=== PATIENT | male | born 1955 | race Caucasian/White ===

== ENCOUNTER 2023-12-12 13:00 | Outpatient (CLI) | payer MEDICARE, SELFPAY | END 2023-12-12 13:01 | disposition home or self-care (01) | PROVIDERS: PCP Family Medicine; Visit Provider Internal Medicine | DX: C61 Malignant neoplasm of prostate (principal) | CPT/HCPCS: 72195 ==

== ENCOUNTER 2025-08-09 01:51 | Outpatient (CLI) | payer MEDICARE, SELFPAY | END 2025-08-09 01:52 | disposition home or self-care (01) | LOC: AMB 08-11 02:51 | PROVIDERS: Visit Provider Family Medicine | DX: R07.89 Other chest pain (principal) | CPT/HCPCS: A0425; A0427 ==

== ENCOUNTER 2025-08-09 02:33 | Emergency (ER) | payer MEDICARE, SELFPAY ==
[2025-08-09 02:35] VITALS: BP 169/86; PULSE 99; RESP 16; TEMP 37.4; O2SAT 98; BMI 22.7
--- OUTSIDE RECORDS SUMMARY | 2025-08-09 02:35 | XMS_ITS | Data Portability ---
Author Organization [place] [facility] [place] [facility] Address [address] [place] [address] Care Team Providers Care Polisher Hand Name Role Phone JUAN VASQUEZ Primary Care Provider Assessment No assessment recorded. Plan of Treatment Reminders Order DateSubmit DateProviderLast Modified ByOrganization DetailsLast Modified TimeDetailsAppointmentsNone recorded.LabNone recorded.ReferralNone recorded. ProceduresNone recorded.SurgeriesNone recorded.ImagingPET-CT, skull base to mid- thigh scan - PSMA scan; Eyes to [id number] Radiology [address], [address], 07/19/2023 09:47:11Medication OrdersNone recorded. Patient TargetsNo targets recorded. Patient Instructions Encounter Date Encounter Id Patient Instructions Last Modified By Organization Details Last Modified Time 07/16/2023 [id number] The patient and I talked at length about treatment options for prostate cancer. Etiologies of prostate cancer were discussed with the patient. Treatment options including radical retropubic prostatectomy, robotic assisted laparoscopic prostatectomy, cryosurgery, external beam radiation therapy, brachytherapy radiation therapy, HIFU, hormonal therapy, chemotherapy, medical therapy, active surveillance and watchful waiting were discussed atlength with the patient. The Sofía score and amount of cancer present on the patient??s prostate biopsy pathology report was reviewed at length and in detail. Pathological grades of prostate cancer, stages of prostate cancer including organ confined, capsular invasion, locally invasive, local joann spread, and distant metastatic spread, bony metastatic disease, and others were discussed at length. We discussed the recurrence rate of prostate cancer. Alternative treatment options were discussed with the patient in detail. All questions were answered. apolcariNot /21/2023 18:24:52 Reason for Referral None Reported. Results Created Date Observation Date Name Description Value Unit Range Abnormal Flag Note LastModifiedBy Organization Detail LastModifiedTime 06/19/2023 06/19/2023 PSA, total, serum or plasma PSA 8.38 highNot AvailableNot Pnuglfxcw84/15/2023 11:45:411ET-CT, skull base to mid-thigh scanNo observation recorded.[facility] [address], [place], [address], Ph [phone] 11:56:17 Result Notes None recorded. Problems Name Problem SNOMED Code Status Onset Date Resolution Date Notes Provider Name and Address Organization Details Recorded Time Type 2 diabetes mellitus 89450793 Active Tabitha catalan [facility] Qkbrwnn31/21/2023 13:24:33Complication of urinary catheter [id number]/02/2025JAMISON BOWMAN MD [address] [place] [address],[address], [address] [place] [address], [facility] Zwclfbw9902/24/2025 16:29:42Radiation [id number] 03/01/2025MCLAREN OAKLANDYoung BOWMAN MD [address] [place] [address],[address], [address] [place] [address], [facility] Vmjbkgr0803/01/2025 16:55:48 Problem Notes None recorded. Procedures Surgical History Date Name Laterality Status Provider Name and Address Organization Details Recorded Time 07/16/2023 Past Data Reviewed Ashish Trinh MD [address] [place] [address],[address], [address] [place] [address], [facility] Xejhxtm94/21/2023 07:25:231iagnostic colonoscopy completedNot AvailableHealth Note07/13/2023 09:27:06 Imaging Results None recorded. Procedure Notes None recorded. Medical Equipment None Reported. Medications Name Sig Start Date Stop Date Status Note LastModified by Organization Details LastModified Time atorvastatin 40 mg tablet TAKE ONE TABLET BY KELVIN TH EVERY DAY activeNot AvailableNot AvailableNot Availableazithromycin 250 mg tabletTAKE TWO TABLETS BY MOUTH ONE DOSE ON THE FIRST DAY, THEN TAKE ONE DAILY THEREAFTER. activeNot AvailableNot AvailableNot Availableclopidogrel 75 mg tabletTAKE ONE TABLET BY MOUTH EVERY MORNINGactiveNot AvailableNot AvailableNot Available sulfamethoxazole 800 mg-trimethoprim 160 mg tabletTAKE ONE TABLET BY MOUTH TWICE A DAY FOR 7 DAYSactiveNot AvailableNot AvailableNot Availablesildenafil 100 mg tabletTAKE ONE TABLET BY MOUTH EVERY DAY 30MIN TO 4HRS PRIOR TO SEXUAL ACTIVITY NEEDED FOR ERECTILE DYSFUNCTIONactiveNot AvailableNot AvailableNot Available famotidine 20 mg tabletTAKE ONE TABLET BY MOUTH TWICE A DAYactiveNot Available Not AvailableNot Availabletamsulosin 0.4 mg capsuleTAKE ONE CAPSULE BY MOUTH EVERY DAYactiveNot AvailableNot AvailableNot Availablecephalexin 500 mg capsule TAKE ONE CAPSULE BY MOUTH THREE TIMES A DAY FOR 7 DAYSactiveNot AvailableNot AvailableNot Availablepantoprazole 40 mg tablet,delayed releaseTAKE ONE TABLET BY MOUTH EVERY DAYactiveNot AvailableNot AvailableNot Availablelevofloxacin 500 mg tabletTAKE ONE TABLET BY MOUTH EVERY DAY FOR ONE DAY3completedNot AvailableNot AvailableNot Availableamoxicillin 875 mg-potassium clavulanate 125 mg tabletTAKE ONE TABLET BY MOUTH TWICE A DAY WITH MEALS FOR 7 DAYSactiveNot AvailableNot AvailableNot AvailableNovolog FlexPen U-100 Insulin aspart 100 unit/mL (3 mL) subcutaneousINJECT 1 UNIT UNDER THE SKIN PER 15G OF CARBOHYDRATE PLUS CORRECTION DOSE MAX 30 UNITS PER DAYactiveNot AvailableNot AvailableNot Availablechlorhexidine gluconate 0.12 % mouthwashGENTLY SWISH 15ML BY MOUTH TWO TIMES A DAY FOR 1-2 WEEKSactiveNot AvailableNot AvailableNot AvailableBD Ultra- Fine Short Pen Needle 31 gauge x 5/16USE TO ADMINISTER INSULIN AT HOME ONCE DAILYactiveNot AvailableNot AvailableNot AvailableLantus Solostar U-100 Insulin 100 unit/mL (3 mL) subcutaneous penINJECT 20-22 UNITS SUBCUTANEOUS BEFORE BEDTIMEactiveNot AvailableNot AvailableNot Availablelidocaine 2 % mucosal jelly in applicatorTake 10 mL 3 times a day by mucous route as needed, for urethral pain from dumont catheter.5activeNot AvailableNot AvailableNot Available GaviLyte-G 236 gram-22.74 gram-6.74 gram-5.86 gram oral solutionTAKE 4000ML BY MOUTH ONE TIME FOR ONE DOSEactiveNot AvailableNot AvailableNot Available FreeStyle Jerry 14 Day Sensor kitREPLACE SENSOR EVERY 14 DAYS DIRECTEDactive Not AvailableNot AvailableNot AvailableFreeStyle Jerry 3 Plus Sensor device CHANGE SENSORS EVERY 15 DAYS.activeNot AvailableNot AvailableNot Available Vitals Date Recorded Body mass index (BMI) Body height Body weight Provider Name and Address Organization Details Last Updated DateTime 07/16/2023 23.5 kg/m2 170.18 cm 68932.9364 79221 g Not Available Health Note 07/16/2023 13:22:01 Social History Question Answer Notes LastModified by Organization D etails LastModified Time Tobacco Smoking Status Never Smoker Not AvailableHealth Note07/13/2023 09:27:07Do You Have An Advance Directive?No voqsgrt7Jipwxpftqud not liuchaatx40/13/2025What Is Your Level Of Caffeine Consumption?[email or web address] not attoywfqm68/18/2023How Much Tobacco Do You Chew?[email or web address] not izuxkogfl83/18/2023o You Have A Medical Power Of Junior Project Manager?Srpmvokro1Gfaeyeqjfzz not btvopkram32/13/2025What Was The Date Of Your Most Recent Tobacco Screening?07/16/2023PI-685Information not available 07/13/2023Have You Ever Been Counseled For Unhealthy Alcohol Use?Yesagranero Information not idobcbjtv83/21/2023What Is Your Relationship Status? [email or web address] not niqzmkomh88/18/2023re You Sexually Active?NoAPI-685 Information not cpflhoeis84/18/2023Has Tobacco Cessation Counseling Been Provided?YesagraneroInformation not yvgmtosgd93/21/2023On What Date Was Tobacco Cessation Counseling Provided?07/16/2023graneroInformation not available 07/16/2023How Many Days In The Past Year Have You Consumed 5 Or More Drinks?2 [email or web address] not stugjxysq10/18/2023 Sex: Unknown Functional Status Question Answer Note LastModified by Organization D etails LastModified Time Do you use any illicit or recreational drugs? No [email or web address] not baururnxs18/18/2023o you or have you ever used any other forms of tobacco or nicotine?NoagraneroInformation not lgdcuhtam97/21/2023What is your level of alcohol consumption?[email or web address] not available 07/13/2023o you or have you ever used smokeless tobacco?Never used smokeless tobaccoAPI-[email or web address] not mmoykrswy93/18/2023o you or have you ever used e- cigarettes or vape?Never used electronic [email or web address] not wdorltqdt76/18/2023 Mental Status None recorded. Family History Relationship Description Onset Age of this Age Resolved Age Notes LastModified by Organization Details LastModified Time Unspecified Relation Family history of diabetes mellitus [email or web address] wzypwtitb10/18/2023 09:27:05 Medical History Condition Response High Blood Pressure N Kidney Stones N Lung Disease N Depression N GERD/Acid Reflux N Sexually Transmitted Infection N Diabetes Y Bleeding Disorder N Cancer N High Cholesterol N Heart Disease N Immunizations Vaccine Type Date Status Note Provider Nam e and Address Organization Details Recorded Time SARS-COV-2 (COVID-19) vaccine, UNSPECIFIED 05/10/2023 completed Not AvailableHealth Note07/13/2023 09:27:11pneumococcal, unspecified formulation 2completedNot AvailableHealth Note07/13/2023 09:27:11influenza, unspecified njxhwdnoict04/15/2023completedNot AvailableHealth Note07/13/2023 09:27:11zoster live1completedNot AvailableHealth Note07/13/2023 09:27:11 Past Encounters Encounter ID Performer Location Encounter Start Date Encounter Closed Date Diagnosis/Indication Diagnosis SNOMED-CT Code Diagnosis ICD10 Code Diagnosis IMO Codes Diagnosis Note [id number] Adan Trinh MD [address] [address] 07/16/2023 13:18:33 07/16/2023 20:34:03 Malignant neoplasm of prostate 312698407 C61 67 y/o male with cT1c, Sofía grade group 3 adenocarcinoma of the prostate, iPSA 8.38 We reviewed the treatment options in detail with a focus on RT and surgery. He would be a reasonable candidate for either option He would be a reasonable candidate for either option pending results of a PSMA PET/CT He has plan for be in [place], [place] for the months of Aug/Sep/October. If he opts for RT, would have him start ADT and place a rectal spacer prior to his departure He will consider the options and let me know how he would like to proceed Health Concerns Section Related Observation LastModified by Organization Velasquez ls LastModified Time None Recorded Concern Status LastModified by Organization Details LastModified Time None Recorded Advance Directives Directive N: Payers Insurance Date Sequence Insurance Name Policy Number Policy Zarate Covered Member ID Zarate Member ID Guarantor Name 03/23/2025 1 [employer] - DOS ON O R AFTER 19 (MEDICARE REPLACEMENT/ADVANTAGE - HMO) [id number] Wellington Kaur [id number] [employer] KaurUCARE - DOS PRIOR TO 2023 - DUAL ELIGIBLE (MEDICARE REPLACEMENT/ADVANTAGE - HMO)[id number] Sondra [id number] Speck Notes Date Note Type Note Provider Name and Address Orga nization Details Recorded Time 07/16/2023 text/html 67 year old male here for discussion re: options for newly diagnosed CAP No issues with UGO. FOS is not strong.No issues with ED, but No longer sexually active PSHx: nonePMHx: Type 1/2 x 25 years (Glucose control is 8) FamHx : none PSA10/ - 8.389/07/18 - 8.124/ - 4.864/ - 3.935/ - 2.01 Prostate Biopsy 07/04/23Final DiagnosisA) PROSTATE, RIGHT LATERAL BASE, NEEDLE BIOPSY:1. Prostatic tissue without evidence of neoplasm2. No atypical foci, high grade prostatic intraepithelial neoplasia, or malignancyB) PROSTATE, RIGHT, NEEDLE BIOPSY:1. Prostatic adenocarcinoma, Britt score 3 + 4 = 7 (ISUP Grade Group 2), with Britt pattern 4 representingapproximately 10% of tumor2. Total surface area involved: <5%3. Number of needle biopsy cores involved: 1 of 34. Perineural invasion: PresentC) PROSTATE, LEFT LATERAL BASE, NEEDLE BIOPSY:1. Prostatic adenocarcinoma, Sofía score 3 + 4 = 7 (ISUP Grade Group 2), with Britt pattern 4 representingapproximately 20% of tumor2. Total surface area involved: 40%3. Number of needle biopsy cores involved: 3 of 34. Perineural invasion: PresentD) PROSTATE, LEFT, NEEDLE BIOPSY:1. Prostatic adenocarcinoma, Sofía score 4 + 3 = 7 (ISUP Grade Group 3), with Britt pattern 4 re presentingapproximately 60% of tumor2. Total surface area involved: 20%3. Number of needle biopsy cores involved: 3 of 34. Perineural invasion: Present The documentation for this visit was created with the assistance of Zari Joiner, medical scribeChief complaint:reason listed below Other Urological Concern:Other Urological Concern:Prostate cancerBegan:2 Months agoFrequency:DailySeverity:mild Progression: about the same overall Adan Trinh MD [address], [place], [address], [facility] Rhgjqbs63/21/2023 18:25:32
--- OUTSIDE RECORDS SUMMARY | 2025-08-09 02:35 | XMS_ITS | Clinical Summary ---
Author Organization [facility] Address [address] [place] [address] Care Team Providers Care Garment Examiner Name Role Phone Elsewhere, Pcp Primary Care Provider Unavailabl e Source Comments Patient records contain information from all sites at [facility]. For routine questions regarding patient records, call [phone] during business hours, M-F 8:00 AM - 5:00 PM Central Time. Record requests for emergency care only can be directed to [phone] at any time.[facility] Allergies Active AllergyReactionsCriticalityNoted DateCommentsAmoxicillinDiarrhea,GI uyqhuphofdv81/02/2010 Medications MedicationSigDispense QuantityRefillsLast FilledStart DateEnd DateStatus glimepiride (AMARYL) 4 mg tablet Take 1.5 tablets (6 mg total) by mouth daily. 135 tablet Active atorvastatin (LIPITOR) 40 mg tablet Take 1 tablet (40 mg total) by mouth at bedtime. 90 tablet Active blood-glucose meter misc E11.9 NIDDM type II - Test 2 times/day. Reason: High A1C05/04/2019Active FreeStyle Jerry 3 Sensor device CHANGE EACH SENSOR EVERY 14 DAYS06/20/2023ctive clopidogreL (PLAVIX) 75 mg tablet Take 75 mg by mouth every morning.Active dextrose 40 % (GLUTOSE) 40 % gel Take 15 g by mouth every 2 (two) hours as needed.05/08/2019Active famotidine (PEPCID) 20 mg tablet Take 20 mg by mouth.08/14/2022ctive insulin aspart U-100 (NovoLOG FlexPen) 100 unit/mL (3 mL) injection INJECT 1 units per 15 grams of carbohydrate plus correction dose. Up to 30 units daily08/26/2009ctive insulin glargine (Lantus Solostar U-100 Insulin) 100 unit/mL (3 mL) injection Inject 17 Units under the skin.09/27/2022ctive ketoconazole (NIZORAL) 2 % shampoo WASH AFFECTED AREAS ON FACE 2-3X WEEKLY. LATHER AND LET SIT FOR SEVERAL MINUTES BEFORE RINSING.08/05/2023ctive levoFLOXacin (LEVAQUIN) 500 mg tablet TAKE ONE TABLET BY MOUTH EVERY DAY FOR ONE DAY05/09/2023ctive BD Ultra-Fine Short Pen Needle 31 gauge x 5/16 needle 06/01/2023ctive triamcinolone (KENALOG) 0.1 % cream APPLY A THIN LAYER TO AFFECTED AREA ON SCALP TWICE DAILY FOR UP TO 2 WEEKS AT A TIME, THEN TAKE A 2WEEK BREAK. RESUME NEEDED FOR FLARES.08/05/2023ctive pantoprazole (PROTONIX) 40 mg EC tablet Take 1 tablet by mouth daily.11/11/2023ctive insulin glargine (Lantus Solostar U-100 Insulin) 100 unit/mL (3 mL) injection Inject 20-22 Units under the skin.10/24/2023ctive calcium carbonate-vitamin D3 500 mg-3.125 mcg (125 unit) per tablet Take by mouth 2 (two) times a day.Active tamsulosin (Flomax) 0.4 mg 24 hr capsule Take 1 capsule (0.4 mg total) by mouth daily. 30 capsule 5Active Active Problems ProblemNoted DateDiagnosed DateRadiation Therapy Cystitis With Hematuria 03/08/2025Stroke Cerebrovascular Accident Personal Mxbpnlh7712/12/2016 Overview (01/15/2017): Stroke (CVA) Pers Hx Diabetes Mellitus Type 2 Wfkqpmikprlh62/22/2013 Overview (01/15/2017): Diabetes mellitus II, uncontrolled (also use V58.67 if pt has filler leaf cutter long (current insulin use) Diabetes Mellitus Type Overview (01/15/2017): Diabetes mellitus type II Resolved Problems ProblemNoted DateDiagnosed DateResolved DatePrimary Malignant Neoplasm Of [place]15/12/2024 Cancer Staging: Clinical stage from 07/04/2023:Stage IIC(cT1c, cN0, cM0, PSA: 8.4, Grade Group: 3) - Unsigned Encounters DateTypeDepartmentCare AlxjWpvytflhied22/16/2025 8:33 AM CDT - 06/10/2025 12:00 PM CDTHospital Encounter Department of Radiation Oncology in [place], [place] [address] [place] [address] Lico Yu M.D. Rhodes, Lori L Primary Malignant Neoplasm Of Prostate (HCC) (Primary Dx); Radiation Therapy Cystitis With Cyboapkvw69/14/2025 7:42 AM CDT - 06/08/2025 11:59 PM CDTHospital Encounter Department of Laboratory Medicine in [place], [place] [address] [place] [address] Lico Yu M.D. Primary Malignant Neoplasm Of Prostate (HCC) Discharge Disposition: Home or Self Carefrom Last 3 Months Immunizations ImmunizationAdministration DatesNext DueDT, Fencdvoke05/18/2003Influenza, Ujfcvsjspis39/11/2013,07/09/2012,05/24/2011,08/21/20109022YMB19580505VLEE84 12/08/2007Tdap1 Family History Medical HistoryRelationNameCommentsDiabetesBrother 1TomOn-set adultDiabetes Brother 2JohnOn-set adultDiabetesBrother 3DiabetesBrother 4Heart attackFather 1 Heart attackFather 2RelationNameStatusCommentsBrother 1TomAliveBrother 2John AliveBrother 3AliveBrother 4Father 1AliveFather 2 Social History Tobacco UseTypesPacks/DayYears UsedDateSmoking Tobacco: NeverSmokeless Tobacco: Never Tobacco Cessation:Counseling Given: Not Answered Alcohol UseStandard Drinks/WeekCommentsYes4 (1 standard drink = 0.6 oz pure alcohol)[facility] UtilitiesAnswerDate RecordedIn the past 12 months has the Followap, gas, oil, or water [employer] threatened to shut off services in your home?No 12/24/2024Hunger Vital SignAnswerDate RecordedWithin the past 12 months, you worried that your food would run out before you got the money to buymore.Never true12/24/2024Within the past 12 months, the food you bought just didn't last and you didn't have money to get more.Never true12/24/2024PRAPARE - TransportationAnswerDate RecordedIn the past 12 months, has lack of transportation kept you from medical appointments or from getting medications?No 12/24/2024In the past 12 months, has lack of transportation kept you from meetings, work, or from getting things needed for daily living?No12/24/2024 Housing StabilityAnswerDate RecordedWhat is your living situation today?I have a steady place to live12/24/2024Sex and Gender InformationValueDate RecordedSex Assigned at TngpdBnsd00/12/2023 10:48 AM CSTLegal GqjOugz7509/28/2016 9:22 AM SOCIAL MEDIA SPECIALIST Gender FosxvboiFqjc79/12/2023 10:48 AM CSTSexual BdxajgwbsosMkpcgboj95/12/2023 10:48 AM SOCIAL MEDIA SPECIALIST Last Filed Vital Signs Vital SignReadingTime TakenCommentsBlood Jeanculf570/6906/10/2025 8:48 AM CDT Lqhbs884706/10/2025 8:48 AM PZDUleuhqrppug30.3 ??C (97.4 ??F)06/10/2025 8:48 AM CDTRespiratory Paki509212/11/2023 11:50 AM CDTOxygen Pfxixpmtyt086%12/11/2023 11:50 AM CDTInhaled Oxygen Concentration--Wyjjzv22.6 kg (162 lb 4.1 oz) 06/10/2025 8:48 AM GGCXffqrc094 cm (5' 7.72)03/26/2017 9:20 AM CDTBody Mass Index24.8803/26/2017 9:20 AM CDT Plan of Treatment Health MaintenanceDue DateLast DoneCommentsCT Powpciwlorhg1953ologuard 1953iabetic Eye Exam1953iabetic Office Visit with Foot Exam 1953Hepatitis C Oraybfgvg1953Office Visit for Blood Pressure Check / Re-check1953Hepatitis B Vaccines (1 of 3 - Risk 3-dose series)2013 Urine Bfdsrsl15, 12/31/2013, 04/30/2013, Additional history existsDepression Screening (Annual PHQ-2)08/26/2024Fall Risk Screen (Annual) 08/26/20246184Bmfkqlvtjxa35, 11/02/2014Colorectal Cancer Erzkyzwztluw69/28/2025Hemoglobin A1C/12/2024, 11/30/2024, 05/07/2024, Additional history existsCOVID-19 Vaccine (9 - Moderna risk 2024- season)/, 05/08/2024, 06/18/2023, Additional history exists Creatinine Level (Kidney Function Test)/05/2025, 06/03/2025, 04/30/2025, Additional history existsLipid (Cholesterol) Idyovquii59/24/2029 01/17/2024, 12/31/2022, 12/15/2021, Additional history existsDTaP,Tdap,and Td Vaccines (4 - Td or Tdap), 06/21/2014, 07/13/2003, Additional history existsAbdominal Aortic Aneurysm (AAA) ScreenDiscontinued 01/08/2014, 01/03/2011Zoster SuzauqgaIunpaniww61/15/2021, 08/01/2020, 06/01/2020 Pneumococcal vaccine (50+ years)Ulruivksu07/07/2023, 05/10/2022, 03/30/2021, Additional history existsRSV vaccine - (32-36 weeks) or 50+ years Iizfzeohl42/23/2024Influenza NcepvghSlaftbqlz60/15/2025, 04/24/2024, 06/18/2023, Additional history existsHPV VaccinesAged OutNo longer eligible based on patient's age to complete this topicIPV VaccinesAged OutNo longer eligible based on patient's age to complete this topic Medical Devices ImplantedTypeAreaManufacturerDevice IdentifierShelf Expiration DateModel / Serial / LotCont Glucose Monitoring (Cgm)Cont Glucose Monitoring (CGM)Left: Arm Marker Tissue [employer] Kv 1x5 - [id number] Implanted:Qty: 4 on 12/11/2023 by Mitch Rojo M.D. at [facility] [[email or web address]] [facility] MarkerProBanner [facility] Medical Vjtktsyhzp5527250245053694/14/2028 [id number] / / [id number] Procedures Procedure NamePriorityDate/TimeAssociated DiagnosisCommentsPROSTATE-SPECIFIC AG (PSA) DIAGNOSTIC, EZohygqt87/14/2025 7:54 AM CDT Primary Malignant Neoplasm Of Prostate (HCC) HEMOGLOBIN A1C, NWsjjapn56/01/2017 9:25 AM CDT ALBUMIN, RANDOM, MVmhapio78/19/2017 9:51 AM CDT LIPID PANEL, OUwxecbq06/19/2017 9:21 AM CDT BASIC METABOLIC PANEL, S/ISpqljrt44/19/2017 9:21 AM CDT US ABDOMEN FHOEIFXXBkdamwi99/16/2014 8:27 AM CDT from Last 3 Months or Most Recently Relevant to Health Maintenance Results * PSA (Prostate-Specific Antigen), Diagnostic (06/08/2025 7:54 AM CDT)Component ValueRef RangeTest MethodAnalysis TimePerformed AtPathologist Signature Prostate-Specific Ag0.13<=6.5 ng/mL06/08/2025 11:20 AM CDTOWATComment: ----ADDITIONAL INFORMATION---- The testing method is an electrochemiluminescence assay manufactured by [employer] and performed on the Modular or Momo system. Values obtained with different assay methods or kits may be different and cannot be used interchangeably. Test results cannot be interpreted as absolute evidence for the presence or absence of malignant disease. Specimen (Source)Anatomical Location / LateralityCollection Method / Volume Collection TimeReceived TimeBlood (Blood, Venous)06/08/2025 7:54 AM CDT 06/08/2025 10:36 AM CDT Narrative Authorizing ProviderResult TypeResult StatusLico Yu M.D.LAB BLOOD ADD-ONFinal ResultPerforming OrganizationAddressCity/State/ZIP CodePhone Number [facility] [address] [place] [address], [place] OWAT [facility] [place] [address] [place] [address] * (ABNORMAL) Hemoglobin A1c (03/26/2017 9:25 AM CDT)ComponentValueRef RangeTest MethodAnalysis TimePerformed AtPathologist SignatureHemoglobin A1c, B7.3(H) <=5.6 R3YFQNEMIKQAMWyyclpmq (Source)Anatomical Location / LateralityCollection Method / VolumeCollection TimeReceived OfesPxlom17/01/2017 9:25 AM CDT Narrative Authorizing ProviderResult TypeResult StatusBaltazar Barrera M.D.LAB BLOOD ADD-ONEdited Result - FinalPerforming OrganizationAddressCity/State/ZIP Code Phone Number POWERCHART NA * Microalbumin, Random, Urine (12/12/2016 9:51 AM CDT)ComponentValueRef Range Test MethodAnalysis TimePerformed AtPathologist SignatureCreatinine, Random, U 7340 - 278 MGDLPOWERCHARTHXU Albumin %<7.0MGLPOWERCHARTAlbumin/Creatinine Ratiosee comment0 - 17 MGGPOWERCHARTComment:Result is below the linear limit of test method. calculation not performed 12/12/2016 12:03:17 CDT ksSpecimen (Source)Anatomical Location / LateralityCollection Method / VolumeCollection TimeReceived EbcbQmznw71/19/2017 9:51 AM CDT Narrative Authorizing ProviderResult TypeResult StatusBaltazar Barrera M.D.LAB URINE ORDERABLESFinal ResultPerforming OrganizationAddressCity/State/ZIP CodePhone Number POWERCHART * Lipid Panel (12/12/2016 9:21 AM CDT)ComponentValueRef RangeTest MethodAnalysis TimePerformed AtPathologist SignatureCholesterol, Zzher344<=199 MGDLPOWERCHART Comment: 2014 National Lipid Association recommendations for Total Cholesterol in adults ages 18 and up: Desirable <200 mg/dL Borderline high 200-239 mg/dL High 240 mg/dL 2014 National Lipid Association recommendations for Total Cholesterol in children ages 2 to 17. Acceptable <170 mg/dL Borderline High 170-199 mg/dL High 200 mg/dL HX HDL59>=40 MGDLPOWERCHARTComment: 2014 National Lipid Association recommendations for HDL-C in adults ages 18 and up: Low <40 mg/dL (Men) Low <50 mg/dL (Women) 2014 National Lipid Association recommendations for HDL-C in children ages 2 to 17. Low <40 mg/dL Borderline Low 40-45 mg/dL Acceptable >45 mg/dL Slnvcehglpynt806<=149 MGDLPOWERCHARTComment: 2014 National Lipid Association recommendations for Triglycerides in adults ages 18 and up: Normal <150 mg/dL Borderline High 150-199 mg/dL High 200-499 mg/dL Very High 500 mg/dL 2014 National Lipid Association recommendations for Triglycerides in children ages 2 to 9. Acceptable <75 mg/dL Borderline High 75-99 mg/dL High 100 mg/dL 2014 National Lipid Association recommendations for Triglycerides in children ages 10 to 17. Acceptable <90 mg/dL Borderline High 90-129 mg/dL High 130 mg/dL Trigs >400mg/dL: Triglycerides >400 mg/dL. Calculated LDL cholesterol is not valid. Non-HDL cholesterol may be used for risk assessment when triglycerides are >400mg/dL. Calculated LDL68<=129 MGDLPOWERCHARTComment: 2014 National Lipid Association recommendations for LDL-C in adults ages 18 and up: Desirable <100 mg/dL Above desirable 100-129 mg/dL Borderline high 130-159 mg/dL High 160-189 mg/dL Very High 190 mg/dL 2014 National Lipid Association recommendations for LDL-C in children ages 2 to 17. Acceptable <110 mg/dL Borderline High 110-129mg/dL High 130 mg/dL LDL-C >190mg/dL: The markedly elevated LDL level is suggestive of a genetic condition such as familial hypercholesterolemia(FH) or familial defective apolipoprotein B-100 (FDB). Molecular genetic testing for FH and FDB is available through [facility]: FH/ADH Genetic Reflex Panel (test ADHP). Acquired (non-genetic) causes of markedly increased LDL cholesterol include cholestatic liver disease due to the presence of LpX. If a genetic form of hypercholesterolemia is suspected, family studies including biochemical testing for lipids (total cholesterol,triglycerides, LDL cholesterol and HDL cholesterol) are recommended. ??Please contact the laboratory at or the on-line test catalog at [facility] for information about how to order these tests or to speak with a genetic counselor. Further interpretation would require clinical information. Total Cholesterol/HDL Ratio2.00POWERCHARTHXLDL/UPF7GGRUXRKHZEXlpejwbh (Source) Anatomical Location / LateralityCollection Method / VolumeCollection Time Received EtksTfdzx45/19/2017 9:21 AM CDT Narrative Authorizing ProviderResult TypeResult StatusDachris Barrera M.D.LAB BLOOD ADD-ONFinal ResultPerforming OrganizationAddressCity/State/ZIP CodePhone Number POWERCHART * US Abdomen Complete (01/08/2014 8:27 AM CDT)Anatomical RegionLaterality ModalityAbdomenN/AUltrasoundSpecimen (Source)Anatomical Location / Laterality Collection Method / VolumeCollection TimeReceived Time01/08/2014 8:27 AM CDT Addenda Addendum by Henry Mckenna M.D. on 01/08/2014 8:27 AM CDT RAD^^^OW US Abdomen Complete 01/08/2014 08:27:40 Addendum by Henry Mckenna M.D. on 01/08/2014 9:30 AM CDT RAD^^^OW US Abdomen Complete 01/08/2014 09:30:00 Addendum by Henry Mckenna M.D. on 01/08/2014 8:27 AM CDT RAD^^^MA US Abdomen Complete 01/08/2014 08:27:00 Addendum by Henry Mckenna M.D. on 01/08/2014 9:30 AM CDT RAD^^^MA US Abdomen Complete 01/08/2014 09:30:00 Narrative 01/08/2014 10:18 AM CDT Exam: ?? US Abdomen Complete Clinical history: Elevated bilirubin Comparison: 01/03/2011 Findings: The pancreas is not well seen due to bowel gas. The liver measures 13.7 cm in AP dimension and exhibits normal echogenicity and echotexture without focal mass. The common bile duct measures 3 mm in maximal diameter. The gallbladder wall measures 2 mm in diameter. There is no pericholecystic fluid or sonographic Cohen sign. There is no cholelithiasis or sludge. The right kidney measures 11.1 x 4.2 cm and exhibits no hydronephrosis, echogenic shadowing stones, or mass. The left kidney measures 11.3 x 4.7 cm and exhibits no hydronephrosis, echogenic shadowing stones, or mass. The spleen is 10.5 cm. The aorta, IVC, and portal vein are patent. Impression: No acute abdominal pathology identified. Procedure Note Sukumar Mast M.D. / Henry Mckenna M.D. - 01/04/2017 Exam: US Abdomen Complete Clinical history: Elevated bilirubin Comparison: 01/03/2011 Findings: The pancreas is not well seen due to bowel gas. The liver measures 13.7 cm in AP dimension and exhibits normal echogenicity and echotexture without focal mass. The common bile duct measures 3 mm in maximal diameter. The gallbladder wall measures 2 mm in diameter. There is no pericholecystic fluid or sonographic Cohen sign. There is no cholelithiasis or sludge. The right kidney measures 11.1 x 4.2 cm and exhibits no hydronephrosis, echogenic shadowing stones, or mass. The left kidney measures 11.3 x 4.7 cm and exhibits no hydronephrosis, echogenic shadowing stones, or mass. The spleen is 10.5 cm. The aorta, IVC, and portal vein are patent. Impression: No acute abdominal pathology identified. Authorizing ProviderResult TypeResult StatusCarlos Torres Jr., RJennaD.M.S.[facility] US PROCEDURESEdited Result - Final from Last 3 Months or Most Recently Relevant to Health Maintenance Insurance Care Teams Team MemberRelationshipSpecialtyStart DateEnd Date Elsewhere, Pcp [facility] Yivyhrqq85/8/18
--- OUTSIDE RECORDS SUMMARY | 2025-08-09 02:35 | XMS_ITS ---
Author Organization [facility] Address [address] [place] [address] Care Team Providers Care Biopharmaceutical Rep Name Role Phone Elsewhere, Pcp Primary Care Provider Unavailabl e Active Problems ProblemNoted DateDiagnosed DateRadiation Therapy Cystitis With Hematuria 03/08/2025Stroke Cerebrovascular Accident Personal Fgibvaj3312/12/2016 Overview (01/15/2017): Stroke (CVA) Pers Hx Diabetes Mellitus Type 2 Khuylhmxbarp33/22/2013 Overview (01/15/2017): Diabetes mellitus II, uncontrolled (also use V58.67 if pt has meterman (current insulin use) Diabetes Mellitus Type Overview (01/15/2017): Diabetes mellitus type II Current Treatment and Therapy Plans No current plan information found. Past Treatment and Therapy Plans No past plan information found. Past Radiation Episodes * SBRT: ProstateOverview* First Treatment DateLast Treatment DateTreatment Site TechniqueGoalEpisode Aldobcco52/01/2024* Prostate SBRTCurative * Linked Problems Primary Malignant Neoplasm O f Prostate Treatment Courses* Treatment PeriodFraction DoseFractionsTotal DosePlansPlanned L2Eozgykxs80/26/2024 - 4800 cGy5 / 54,000 cGyReference Points XcolffhljWCH7206r95/26/2024 - 12/30/2023?4,000 cGy Resolved Problems ProblemNoted DateDiagnosed DateResolved DatePrimary Malignant Neoplasm Of Gknwhvif68/12/2024 Cancer Staging: Clinical stage from 07/04/2023:Stage IIC(cT1c, cN0, cM0, PSA: 8.4, Grade Group: 3) - Unsigned
--- OUTSIDE RECORDS SUMMARY | 2025-08-09 02:36 | XMS_ITS | Clinical Summary ---
Author Organization [email or web address] [facility] [employer] Address [address] [place] [address] Care Team Providers Care Vp Clinical Research Name Role Phone Andre Ricci Primary Care Provid er David Barbosa MD Unavailable Allie Maier RN Unavailable [phone] Orlando Morris MD Unavailable [phone] Allergies Active AllergyReactionsCriticalityNoted DateCommentsAmoxicillinDiarrhea 01/15/2014 Patient reports this happened 40 years ago as of 02/17/25 Medications MedicationSigDispense QuantityRefillsLast FilledStart DateEnd DateStatus insulin syringe-needle u-100 0.3 mL 31 gauge x 5/16 Indications:Type 2 diabetes mellitus without complication, without long-term current use of insulin (HC)As directed. For administering insulin at home. 3 box 07/14/2020Active calcium carbonate-vitamin D3, 500 mg-400 units, (OSCAL 500 + D) tablet Take 1 Tablet by mouth two times daily before meals.01/17/2024ctive insulin aspart, U-100, (NovoLOG Flexpen U-100 Insulin) 100 unit/mL (3 mL) pen Indications:Type 2 diabetes mellitus without complication, with long-term current use of insulin (HC)INJECT 1 UNIT UNDER THE SKIN PER 15G OF CARBOHYDRATE PLUS CORRECTION DOSE MAX 30 UNITS PER DAY 60 mL 07/19/2024ctive Additional Information Patient taking differently: INJECT 1 UNIT UNDER THE SKIN PER 20G OF CARBOHYDRATE PLUS CORRECTION DOSE MAX 30 UNITS PER DAY, Informant: Other Medical Records, Reported on 07/28/2025 sildenafil citrate (Viagra) 100 mg tablet Indications:Erectile dysfunction, unspecified erectile dysfunction typeTake 1 Tablet (100 mg) by mouth once daily if needed for Erectile Dysfunction for up to 20 doses. Take 30min to 4 hours before sexual activity. Max 100mg/24hr. 30 Tablet 5Active FreeStyle Jerry 3 Plus Sensor for continuous blood glucose monitor (CGM) Indications:Type 2 diabetes mellitus without complication, with long-term current use of insulin (HC)To be used to read blood sugars, change sensor every 15 days. 6 Each 5Active atorvastatin (LIPITOR) 40 mg tablet Indications:Hyperlipidemia, unspecified hyperlipidemia typeTAKE ONE TABLET BY MOUTH EVERY DAY 90 Tablet 5Active fluorouracil (Efudex) 5 % cream Indications:Skin cancerApply to the skin twice daily for three weeks to the site on the top left scalp. 40 g 5Active glucagon (Glucagon Emergency Kit (human)) 1 mg/mL solution for injection kit Indications:Type 2 diabetes mellitus with hyperglycemia, with long-term current use of insulin (HC)Inject 1 mg intramuscular each time if needed for Severe Hypoglycemia. For severe hypoglycemia. Roll on side and call 911 after administration. May repeat in 15 minutes. 2 Each 5Active tamsulosin 0.4 mg capsule Take 0.4 mg by mouth one time if needed.Active warfarin (COUMADIN) 2.5 mg tablet Indications:Hypoattentuated leaflet thickening (HALT),Anticoagulation monitoring, INR range 2-3Take by mouth 07/28: Hold; Otherwise 3.75 mg every Sat; 5 mg all other days in the evening OR as xsvykbzk00/03/2025Active insulin glargine (U-100) (Lantus Solostar U-100 Insulin) 100 unit/mL (3 mL) pen Indications:Type 2 diabetes mellitus without complication, with long-term current use of insulin (HC)Inject 20-22 units subcutaneous before bedtime. 30 mL 07/28/2025 7:34 PM CST5Active pantoprazole (PROTONIX) 40 mg delayed-release tablet Indications:Distal esophageal obstruction due to foreign bodyTAKE ONE TABLET BY MOUTH EVERY DAY 90 Tablet 5Active disposable insulin pen needle (BD Insulin Pen Needle UF) 31 gauge x 5/16 (disposable insulin pen needle) Indications:Type 2 diabetes mellitus without complication, without long-term current use of insulin (HC)USE TO ADMINISTER INSULIN AT HOME FOUR TIMES DAILY.Dispense items covered by patient insurance. 400 Each 5Active Pen Needle 31 gauge x 5/16 (disposable insulin pen needle) Indications:Type 2 diabetes mellitus without complication, without long-term current use of insulin (HC)For administering insulin at home QD 100 Each Discontinued pantoprazole (PROTONIX) 40 mg delayed-release tablet Indications:Distal esophageal obstruction due to foreign bodyTAKE ONE TABLET BY MOUTH EVERY DAY 90 Tablet Discontinued insulin glargine (U-100) (Lantus Solostar U-100 Insulin) 100 unit/mL (3 mL) pen Indications:Type 2 diabetes mellitus without complication, with long-term current use of insulin (HC)Inject 20-22 units subcutaneous before bedtime. Product desired: LANTUS SOLOSTAR 30 mL Discontinued warfarin (COUMADIN) 2.5 mg tablet Indications:Hypoattentuated leaflet thickening (HALT),Anticoagulation monitoring, INR range 2-3Take by mouth 07/23: Hold; 07/24: Hold; 07/25: Hold; 07/26: Hold; 07/27: Hold; Otherwise 3.75 mg every Sat; 5 mg all other days in the evening OR as [id number](Other - add note to specify (E-cancel not sent)) Active Problems ProblemNoted DateDiagnosed RssfCmlvffvhu42/03/2025Lower urinary tract symptoms due to benign prostatic bgfgfwqipsb04/10/2025Erectile bzsrksuvxbr22/10/2025 Prostate xgoznc3707/05/2025Radiation swbyrzkz97/10/2025Encounter for long-term (current) use of caineal9106/15/2025 Overview (06/15/2025): Lantus Solostar U-100 Insulin 100 unit/mL (3 mL) subcutaneous pen ... INJECT 20-22 UNITS SUBCUTANEOUS BEFORE BEDTIME. PRODUCT DESIRED: LANTUS SOLOSTAR ... order date: 03/08/25, start date: NA (reported by [facility], _[place]) Novolog FlexPen U-100 Insulin aspart 100 unit/mL (3 mL) subcutaneous ... INJECT 1 UNIT UNDER THE SKIN PER 15G OF CARBOHYDRATE PLUS CORRECTION DOSE MAX 30 UNITS PER DAY ... order date: 03/08/25, start date: NA [facility]) insulin aspart U-100 (NovoLOG FlexPen) 100 unit/mL (3 mL) injection ... INJECT 1 units per 15 grams of carbohydrate plus correction dose. Up to 30 units daily ... order date: 03/08/25, start date: 08/26/09 (reported by [facility]) NovoLOG FlexPen U-100 Insulin 100 unit/mL (3 mL) insulin pen ... INJECT 5 UNITS UNDER TH SKIN 3 TIMES A DAY WITH MEALS ... order date: 03/08/25, start date: 09/25/22 (reported by [facility]) Lantus Solostar U-100 Insulin 100 unit/mL (3 mL) insulin pen ... INJECT 17 UNITS SUBCUTANEOUS BEFORE BEDTIME. ... order date: 03/08/25, start date: 09/27/22 [facility] insulin glargine (Lantus Solostar U-100 Insulin) 100 unit/mL (3 mL) injection ... Inject 20-22 Units under the skin. ... order date: 03/08/25, start date: 10/24/23 (reported by [facility]) insulin glargine 100 unit/mL pen (BASAGLAR; LANTUS SOLOSTAR) ... Inject 20-22 units subcutaneous before bedtime. Product desired: LANTUS SOLOSTAR ... order date: 11/11/24, start date: 11/11/24 insulin aspart (U-100) 100 unit/mL subcutaneous pen (NOVOLOG FLEXPEN) 3 mL ... INJECT 1 UNIT UNDER THE SKIN PER 15G OF CARBOHYDRATE PLUS CORRECTION DOSE MAX 30 UNITS PER DAY ... order date: 07/19/24, start date: 07/19/24 AI Summary: The patient had a history of type 2 diabetes mellitus, which was diagnosed on 01/19/2014, and was admitted for hematuria on 02/15/2025. The patient's diabetes was moderately well-controlled, and the patient was on long-term insulin. The patient's brother had diabetes. Recent encounter dx: 03/08/25: Appointment - [facility] 02/09/25: Support OP Encounter - [facility] 02/01/25: Appointment - [facility] 11/30/24: Support OP Encounter - [facility] 11/30/24: Appointment - [facility] Psoriatic vrcjueyfi33/21/2025 Overview (06/15/2025): AI Summary: Psoriatic arthritis was on the patient's problem list on 12/16/2024. Psoriatic arthritis was also mentioned on 02/15/2025. The patient's history included psoriatic arthritis, as noted on 01/17/2024. Recent encounter dx: 11/30/24: Support OP Encounter - [facility] 11/30/24: Appointment - [facility] 01/17/24: Appointment - [facility] Recent notes: 02/17/25: H&P - HISTORY & PHYSICAL by GILSON Medrano ... [+] ? PSA (psoriatic arthritis) () 01/17/2024 02/15/25: ED Provider Note - ED PHYSICIAN NOTE by Jonathan Dominique MD ... [+] ? PSA (psoriatic arthritis) (HC) L40.50 02/15/25: ED Provider Note by Chandrika Raymond MD ... [+] PSA (psoriatic arthritis) (HC) 11/30/24: Progress Notes - Nursing Notes by Hector Connelly MD ... [+] PSA (psoriatic arthritis) () L40.50 Stage 3 chronic kidney ocekydk5206/15/2025 Overview (06/15/2025): 10/09/25: Cr 1.7 mg/dL 06/03/25: GFR 43 mL/min/1.73m2 06/03/25: BUN 20 mg/dL On meds: Calcium carbonate + colecalciferol (product) Type 2 diabetes /21/2025 Overview (06/15/2025): AI Summary: The patient has a history of type 2 diabetes mellitus, which was noted to be diagnosed on 01/19/2014. The patient was admitted for hematuria. The patient's last A1c value indicated moderately well-controlled diabetes. 11/30/24: A1c 7.4 % of total Hgb 02/18/25: Cr 0.97 mg/dL On meds: FreeStyle Jerry 3 Sensor device (external), Insulin, insulin aspart, human, insulin glargine Recent encounter dx: 03/08/25: Appointment - [facility] 02/09/25: Support OP Encounter - [facility] 02/01/25: Appointment - [facility] 11/30/24: Support OP Encounter - [facility] 11/30/24: Appointment - [facility] Recent notes: 03/08/25: H&P by Concepcion Gilmore MD ... [+] ? Type 2 diabetes mellitus with hyperglycemia, with long-term current use of insulin (HC) E11.65, Z79.4 ... [+] Type 2 diabetes mellitus with hyperglycemia, with long-term current use of insulin (HC) E11.65 URINE ALBUMIN TO CREATININE RATIO, RANDOM 02/22/25: Discharge Summary by Tony Lennon DO ... [+] Type 2 diabetes mellitus with hyperglycemia, with long-term current use of insulin (HC) ... [+] For diagnoses: Type 2 diabetes mellitus without complication, with long- term current use ofinsulin (HC) ... [+] For diagnoses: Type 2 diabetes mellitus without complication, without long-term current useof insulin (HC) 02/21/25: Anesthesia Preprocedure Evaluation by Precious Lisa MD ... [+] 01/19/2014: Hyperlipidemia 01/19/2014: Type 2 diabetes mellitus (HC) 02/17/25: H&P - HISTORY & PHYSICAL by GILSON Medrano ... [+] ? Type 2 diabetes mellitus without complication, with long-term current use of insulin (HC)06/09/2016 02/17/25: Consults - [facility] by DONNA Steward ... [+] ? Type 2 diabetes mellitus (HC) 01/19/2014 Stage 3a chronic kidney pkptvmq8106/07/2025hest pain06/03/2025KI (acute kidney injury)06/03/2025Hypoattentuated leaflet thickening (HALT)05/10/2025 Anticoagulation monitoring, INR range 2-309ortic valve stenosis 03/26/2025Irradiation cystitis with jyrormtrw92/14/2025Skin nlwdrq2008/03/2024 Overview (07/01/2025): 06/21/25: vertex scalp, SCCIS, Efudex 06/21/25: right superior occipital scalp, [facility], Dr. Stephan [facility] 07/01/25 12/16/24: Right inferior clavicle, Basal cell carcinoma, nodular type S/P excision 01/13/25 08/03/2024, right frontal scalp, nBCC, 12/14/24 Dr. Stephan [facility] 08/03/2024, right lateral trunk, superficial and nodular BCC, ED&C 12/10/24 Precious THOMPSON 2022: SCC- Left frontal scalp, Right religion. Type 2 diabetes mellitus with hyperglycemia, with long-term current use of cdeumja7612/17/2021VA (cerebral infarction)08/04/2014Gilbert's rmkvnzf8806/22/2014 Izmiollqfbsmch71/27/2014EsophagitisEsophageal stricturePolyp of colon Resolved Problems ProblemNoted DateDiagnosed DateResolved TdceQqzunyxym21/24/42124603/08/2025PSA (psoriatic arthritis)/S/P excision of ganglion cyst06/26/2019 03/08/20254281Jvdtnjcno29Type 2 diabetes mellitus without complication, with long-term current use of ydjjvfe50ataract Type 2 diabetes mellitus without ywqugprzpeod74/03/2015 06/09/2016 Overview (06/04/2025): Diagnosis Code replaced due to regulatory update Type 2 diabetes Encounters DateTypeDepartmentCare JntyRivrxsjwbhv75/12/2025Results Follow-Up [address] [address] Yajaira Ashford LPN 08/05/20256260Ybawdg67/10/0943Gntahr92/05/2025Refill [address] [address] Andre Ricci PA Refill Request (Pantoprazole, Bd Insulin Pen Needle Uf)07/28/2025 7:15 PM FAMILY PROTECTION SPECIALIST Office Visit [facility] [address] [place] [address] 07/28/2025 7:42 AM CSTAnesthesia Event [facility] [address] [place] [address] Angie Cottrell, MIRANDA 07/28/2025 7:35 AM FAMILY PROTECTION SPECIALIST - 07/28/2025 8:20 AM CSTSurgery [facility] [address] [place] [address] Rahat Vernon MD COLONOSCOPY WITH QZZDTCSLBYZ43/03/2025 6:41 AM FAMILY PROTECTION SPECIALIST - 07/28/2025 9:20 AM FAMILY PROTECTION SPECIALIST Hospital Encounter [facility] [address] [place] [address] Rahat Vernon MD Discharge Disposition: Home Self Care07/28/2025Refill [address] [address] Andre Ricci PA Refill Request (Lantus Solostar U-100 Insulin)07/28/2025nticoagulation (warfarin) [address] [place] [address] NurseJessica Anticoag Anticoagulation (Chart Update )07/28/20259981Innsmn84/02/2025Telephone [address] [address] Rahat Vernon MD discuss upcoming zpresnlnpxy95/26/2025 10:45 AM CSTOrders Only [address] [address] Lab, Drea <No scans attached>07/21/2025nticoagulation (warfarin) [address] [address] NurseJessica Anticoag Fhycfffdqhrxsmf07/25/6041Iykeew58/21/2025 9:15 AM CSTOffice Visit [facility] [address] [place] [address] [address] [place] [address] Orlando Morris MD Consult; Uduchzvm33/20/2025 3:00 PM CSTNurse/Clinic Staff Only [address] [place] [address] Suture Sovqtqn4607/15/20256933Tjnlfo06/20/2025nticoagulation (warfarin) [address] [address] Nurse, Jessica Anticoag Anticoagulation (Chart update)07/11/20250630Wtopzj60/15/7301Legzoe71/13/2025 3:00 PM CSTOffice Visit [address] [place] [address] Moises Lucero NP Surgical Followup (Patient had surgery to remove cancer tissue from his scalp on 07/01, states that he is feeling pressure and swelling under the area. States the area is tender to the touch, just wants to make sure it is healing alright.) 07/08/2025 9:30 AM CSTOrders Only [address] [place] [phone] Lab, Drea <No scans attached>07/08/2025Telephone [facility] [address] [facility] [address] [facility] [address] [place] [address] Stephan La MD Questions (RETURNING CALL )07/08/2025nticoagulation (warfarin) [address] [facility] [address] Nurse, Jessica Anticoag Mqofnaterbgbyez76/13/5178Yzxnpw30/12/7073Edrswm87/12/2025Nurse Triage [address] [facility] [place] [place] [address] Andre Ricci PA Post-op Pain/heckeoz0307/06/20254589Gxjfqc99/10/2025 3:00 PM CSTPatient Outreach [facility] [address] [facility] [address] [address] Allie Maier RN Diabetes (Diab ed )07/05/2025 8:00 AM CSTOffice Visit [address] [facility] [place] [phone] David Barbosa MD Follow Up (6 month; prostate cancer and radiation cystitis.)07/05/2025 Anticoagulation (warfarin) [address] [facility] [place] [address] Nurse, Jessica Anticoag 07/05/20256101Zjohwa56/07/2025 12:00 PM CSTOrders Only [address] [place] [address] Lab, Drea <No scans attached>07/02/2025Telephone [address] [facility] [phone] Andre Ricci PA Anticoagulation (AC Target End Date approaching.)07/02/2025nticoagulation (warfarin) [address] [place] [address] Nurse, Jessica Anticoag Aoncdllpumwgpwx25/06/2025 10:30 AM CSTProcedure Only [facility] [address] [facility] [address] [place] [address] [place] [address] Stephan La MD Procedure (Mohs )07/01/2025Telephone [facility] [address] [address] Christina Lamb MD Derm Problem (Efudex advisement to scalp)07/01/20258324Hizenf79/04/2025Travel 06/28/20251172Dfuyba61/03/2025Telephone [facility] [address] [place] [address] Christina Lamb MD Abnormal Lab Huyrdhd1306/27/20259330Htmpys72/31/2025Telephone [address] [address] David Barbosa MD Lab06/24/2025 7:45 AM CDTOrders Only [address] [address] Lab, Drea <No scans attached>06/24/2025nticoagulation (warfarin) [address] [address] Nurse, Jessica Anticoag Zvcqmoxbkjqmqby53/30/3836Vpvszh53/28/2025Telephone [address] [address] Andre Ricci PA Hcaveiotm88/27/2025 7:30 AM CDTOffice Visit [address] [address] Christina Lamb MD Derm Problem (Full body skin exam )06/20/20250424Rczqga57/25/0281Wkgvzs86/23/2025 12:30 PM CDTOrders Only [address] [facility] [place] [address] Lab, Drea <No scans attached>06/17/2025nticoagulation (warfarin) [address] [place] [address] Nurse, Jessica Anticoag Njiwtdgxaffbpdh77/23/0012Exmgqm25/21/2025Refill [address] [place] [address] Andre Ricci PA Refill Request (warfarin)06/14/2025Telephone [facility] [place] [address] Autumn Loredo, DO Needs meds for c/s and Chart Wobdzf7406/13/20253927Ijlkrn47/16/2025 7:45 AM CDTOrders Only [address] [facility] [place] [place] [address] Lab, Drea <No scans attached>06/10/2025Telephone [address] [address] Andre Ricci PA Qksuyhwqd46/16/2025nticoagulation (warfarin) [address] [address] Nurse, Jessica Anticoag Dwxcvadmfvwtnve04/16/0482Qmzexu87/15/2529Ojufbv70/13/2025 8:20 AM CDTOffice Visit [address] [place] [address] Andre Ricci PA Diabetes (glucose fluctuates alot- ); Follow Up (er visit - chest pain - diagnosed with acid refluxand stress)06/07/2025 7:45 AM CDTOrders Only [address] [facility] [place] [place] [address] Lab, Drea <No scans attached>06/07/2025nticoagulation (warfarin) [address] [address] Nurse, Itag Anticoag Fyczpfoyjxtarra72/12/1149Adhmgt45/10/2025nticoagulation (warfarin) [address] [address] Nurse, Ahg Anticoag Anticoagulation (Chart Update )06/04/2025Orders Only [facility] [address] [place], [place] [address] Howie Neely <No scans attached>06/03/2025 5:07 PM CDT - 06/04/2025 3:20 PM CDTHospital Encounter [facility] [address] [place] [address] Gregg Rosado MD [facility], [facility], MD Anne-Marie Cintron, Ketan Jimenez NP JULITO (acute kidney injury) (Primary Dx); Chest discomfort; Lightheadedness Discharge Disposition: Home Self Care06/03/2025 4:00 PM CDTOffice Visit [facility] [address] NP Chest Pain06/03/2025 7:45 AM CDTOrders Only [address] [place] [address] Lab, Drea <No scans attached>06/03/2025nticoagulation (warfarin) [address] [address] Nurse, Jessica Anticoag Wvvizagbojzzlfp42/09/2025Telephone [address] [place] [address] Andre Ricci PA Anticoagulation (Upcoming procedure hold)06/03/20250133Aensyb09/06/2025 12:30 PM CDT Orders Only [address] [facility] [place] [place] [address] Lab, Drea <No scans attached>05/31/2025nticoagulation (warfarin) [address] [place] [address] Nurse, Jessica Anticoag Jxytjhgyrfgmulm61/06/8269Lkuhws62/04/4556Vxmgsh51/03/2025Refill [address] [place] [address] Andre Ricci PA Refill Request (Lipitor)05/28/2025Refill [address] [place] [address] Hector Connelly MD Refill Request (Atorvastatin)05/27/2025 1:00 PM CDTOrders Only [address] [place] [address] Lab, Drea <No scans attached>5Anticoagulation (warfarin) [address] [place] [address] Nurse, Jessica Anticoag Qsokslleivlrnmw54/01/5145Hbxqaf00/29/2025 1:30 PM CDTOrders Only [address] [place] [address] Lab, Drea <No scans attached>05/24/2025Telephone [address] [place] [address] Andre Ricci PA Anticoagulation (Review plan)05/24/2025nticoagulation (warfarin) [address] [place] [address] Nurse, g Anticoag Dcscfxxnrngaevl58/28/9584Hqzbhe22/26/2025 1:00 PM CDTOrders Only [address] [place] [address] Lab, Drea <No scans attached>05/21/2025nticoagulation (warfarin) [address] [place] [address] Nurse, g Anticoag Duowgbsxemcxptp35/25/5747Ddajjm31/23/2025 2:30 PM CDTOrders Only [address] [place] [address] Lab, Drea <No scans attached>5Anticoagulation (warfarin) [address] [place] [address] Nurse, g Anticoag Lbrjkjyestptnkh65/23/2235Mpyaox96/20/5017Jivpim09/17/2025 10:00 AM CDTOrders Only [address] [place] [address] Lab, Drea <No scans attached>5Anticoagulation (warfarin) [address] [place] [address] Nurse, [facility] Anticoag Rbnijxodpjycuke56/17/4739Uekndl12/15/2025 11:30 AM CDTTelemedicine [facility] [address] [place] [address] [place] [address] Rogers Love NP Follow Up (S/P TAVR)05/10/2025Telephone [address] [place] [address] Andre Ricci PA Wgijghlajaigfhx00/15/2025Anticoagulation (warfarin) [address] [place] [address] Nurse, Ahg Anticoag Wnzrqrapoagilop16/15/2025Telephone [address] [place] [address] Andre Ricci PA Anticoagulation (Orders needed)from Last 3 Months Immunizations ImmunizationAdministration DatesNext DueCOVID-19 vaccine (Moderna 100mcg/0.5mL) PF, MDV05/10/2023,12/14/2021,06/22/2021,11/07/2020,1DT (Age < 7 years) 07/13/2003Influenza Virus, Xraqjrkctuh92/15/2023,07/16/2022,05/25/2015, 05/24/2011Influenza, IIV3 (Age >=3 years)05/01/2019,07/28/2018,05/26/2014, 07/06/2013,07/09/2012,05/24/2011,08/21/2010Influenza, EGD348/,07/22/2017, 06/01/2016Influenza, Inactivated AIIV4 (Age 65+ Years) Preserv Free06/18/2023, 05/03/2022,06/08/2021,05/10/2020Influenza, Inactivated IIV3 (Age 65+ Years) Preserv Free05/10/2025,04/24/2024,05/01/2019Pneumococcal Conj 20-valent (Prevnar 20)3Pneumococcal Poly,23-Valent (Pneumovax)03/30/2021,12/08/2007 Pneumococcal, Hjlqjzqichw34/15/2022RSV, Bivalent Vaccine Reconstituted (Abrysvo 120MCG/0.5mL)06/17/2024Tdap1,06/21/2014Zoster (Shingrix-RZV, recombinant)08/01/2020,06/01/2020Zoster (Zostavax-ZVL, live)05/10/2021 Family History Medical HistoryRelationNameCommentsDiabetesBrother 1insulin dependentDiabetes Brother 2Coronary artery diseaseFatherCancerNo Family HistoryRelationNameStatus CommentsBrother 1Brother 2FatherDeceased (Age 75)MotherDeceased (Age 82) Social History Tobacco UseTypesPacks/DayYears UsedDateSmoking Tobacco: NeverSmokeless Tobacco: NeverAlcohol UseStandard Drinks/WeekCommentsYes4 (1 standard drink = 0.6 oz pure alcohol)4 beers per weekPHQ-2AnswerDate RecordedPHQ-2 TOTAL VVUPR650 Social ConnectionsAnswerDate RecordedDo you often feel lonely or isolated from those around you?lcohol UseAnswerDate RecordedHow often do you have a drink containing alcohol?How many drinks containing alcohol do you have on a typical day when you are drinking?How often do you have five or more drinks on one occasion?Financial Resource StrainAnswer Date RecordedDifficulty of Paying Living Ugprcjev517/02/2025Difficulty of Paying Living ExpensesNot on file11/25/2024Food InsecurityAnswerDate RecordedDo you worry your food will run out before you are able to buy more? Transportation NeedsAnswerDate RecordedDoes lack of transportation keep you from medical appointments?Does lack of transportation keep you from work, meetings or getting things that you need?Housing StabilityAnswerDate RecordedWhat is your housing situation today?Interpersonal Safety AnswerDate RecordedAre you being hit, kicked, pushed or yelled at (see row info)?No06/03/2025Interpersonal Safety Abuse 12 - 18Not on file06/03/2025 Interpersonal Safety Ambulatory VulnerabilityNot on file06/03/2025Utilities AnswerDate RecordedDo you have trouble paying for utilities (for example, heat, electricity, water, phone)?Sex and Gender InformationValueDate RecordedSex Assigned at PsyrnWrcg14/03/2021 5:58 AM CSTLegal YluAlyj21/19/2013 2:55 PM CSTGender NawcfzrqYlqz99/03/2021 5:58 AM CSTSexual OrientationStraight 07/28/2021 5:58 AM CSTOccupationIndustryJob Start DateJob End DateretiredNot on fileNot on fileNot on fileTravel HistoryTravel StartTravel EndCalifornia Last Filed Vital Signs Vital SignReadingTime TakenCommentsBlood Sqqjzgcq321/7207/28/2025 8:50 AM FAMILY PROTECTION SPECIALIST Fqaah725107/28/2025 8:50 AM KWBOfgbuzzkufo93.3 ??C (97.3 ??F)07/28/2025 7:09 AM CSTRespiratory Ztip688709/28/2024 8:20 AM CSTOxygen Bbjfhcwelk90%07/28/2025 8:50 AM CSTInhaled Oxygen Concentration--Pddlha75.3 kg (150 lb 9.6 oz)07/28/2025 7:09 AM ISFKjruin425.2 cm (5' 7)07/28/2025 7:09 AM CSTBody Mass Index23.59 07/28/2025 7:09 AM FAMILY PROTECTION SPECIALIST Plan of Treatment DateTypeDepartmentCare Team (Latest Contact Info)Isdoqrlggjk04/15/2025 3:30 PM CSTOffice Visit [facility] [address] [place] [address] Andre Ricci PA [address] [place] [address] 08/10/2025 9:00 AM CSTAppointment [facility] [address] [place] [address] 08/10/2025 11:00 AM CSTOffice Visit [facility] [address] [place] [phone] 08/16/2025 11:30 AM CSTOffice Visit [facility] [address] [facility] [place] [address] [place] [address] Stephan La MD [address] [facility] [address] [place] [address] 12/13/2025 9:15 AM CDTOffice Visit [facility] [address] [facility] [address] [place] [address] [place] [address] [place] [address] 12/28/2025 7:40 AM CDTOffice Visit [facility] [address] [facility] [address] [place] [address] [place] [address] [place] [address] 01/03/2026 7:30 AM CDTOrders Only [facility] [address] [place] [address] [facility] DateLast DoneCommentsDepression screening for age 12+ /03/2024, 03/18/2023, 03/18/2023, Additional history existsMedicare Wellness for age 65+/03/2024, 03/18/2023, 12/15/2021, Additional history existsCOVID-19 vaccine series (9 - Moderna risk 2024- season) /, 05/08/2024, 06/18/2023, Additional history existsBMI (ht and wt on same day) for age 18+/, 03/08/2025, 02/10/2025, Additional history existsLipids for age 45-, 01/17/2024, 12/31/2022, Additional history existsColonoscopy through age 751207/28/2025, 03/22/2020, 11/02/2014Tetanus , 06/21/2014Zoster (shingles) series for age 50+Mztnxdmyg83/15/2021, 08/01/2020, 06/01/2020Hepatitis C screening for age 18-42Rbicuntfn17/06/2021neumococcal series for age 50+Ocpnhedzf59/07/2023, 05/10/2022, 03/30/2021, Additional history existsRSV vaccine for adults or okebdehwyLjnoeaxso39/23/2024Influenza FgzrhriQwvkurhbw34/15/2025, 04/24/2024, 06/18/2023, Additional history exists Hepatitis B series for 19+Aged OutNo longer eligible based on patient's age to complete this topic Procedures Procedure NamePriorityDate/TimeAssociated DiagnosisCommentsPATH TISSUE EXAMToday 07/28/2025 7:52 AM FAMILY PROTECTION SPECIALIST ESOPHAGOGASTRODUODENOSCOPY WITH WZYJBN3807/28/2025 7:42 AM FAMILY PROTECTION SPECIALIST Screen for colon cancer Chronic GERD Stricture of esophagus COLONOSCOPY WITH ISBISIZJFBC37/03/2025 7:42 AM FAMILY PROTECTION SPECIALIST Screen for colon cancer Chronic GERD Stricture of esophagus PFLSYTLHW44/03/2025 7:26 AM FAMILY PROTECTION SPECIALIST RTVDZUQHSTE69/03/2025 7:12 AM FAMILY PROTECTION SPECIALIST PROTIME-GDCRhtsskf59/26/2025 10:39 AM FAMILY PROTECTION SPECIALIST Hypoattentuated leaflet thickening (HALT) Anticoagulation monitoring, INR range 2-3 PROTIME-CXNTjhikqb49/13/2025 9:28 AM FAMILY PROTECTION SPECIALIST Hypoattentuated leaflet thickening (HALT) Anticoagulation monitoring, INR range 2-3 PROTIME-XJLMuxtjvw32/07/2025 11:51 AM FAMILY PROTECTION SPECIALIST Hypoattentuated leaflet thickening (HALT) Anticoagulation monitoring, INR range 2-3 PROTIME-QKOWipzewo06/30/2025 7:55 AM CDT Hypoattentuated leaflet thickening (HALT) Anticoagulation monitoring, INR range 2-3 PATH TISSUE SWMMGcjqicd05/27/2025 7:45 AM CDT Neoplasm of uncertain behavior of skin PROTIME-EYEAzzvrsg23/23/2025 12:35 PM CDT Hypoattentuated leaflet thickening (HALT) Anticoagulation monitoring, INR range 2-3 PROTIME-WYEXihafuw25/16/2025 7:56 AM CDT Hypoattentuated leaflet thickening (HALT) Anticoagulation monitoring, INR range 2-3 PROTIME-TAZCzfkcmp74/13/2025 7:50 AM CDT Hypoattentuated leaflet thickening (HALT) Anticoagulation monitoring, INR range 2-3 ECHO TTE LIMITED WO CONTRAST W COLOR W LTD AWGBMZNVmhijqt47/10/2025 2:33 PM CDT EKG 12 BIZGWWKM67/10/2025 12:47 PM CDT GLUCOSE VDEMLIexcw45/10/2025 11:51 AM CDT GLUCOSE AYSANIrtwf48/10/2025 7:02 AM CDT HEPATIC FUNCTION PANELEarly AM06/04/2025 4:24 AM CDT PROTIME-INREarly AM06/04/2025 4:24 AM CDT HEMOGLOBINEarly AM06/04/2025 4:24 AM CDT BASIC METABOLIC PANELEarly AM06/04/2025 4:24 AM CDT SCAN-CARDIAC STRIP06/04/2025 1:36 AM CDTGLUCOSE YFMJWWigzh65/09/2025 10:25 PM CDT TROPONIN T (HS) ONE AKVCUurfz58/09/2025 7:53 PM CDT URINALYSIS AZAMDDGHNPJSBHW70/09/2025 6:39 PM CDT UA W/ SEDIMENT EXAM REFLEXED PER ZJEVDDFFJKNF01/09/2025 6:39 PM CDT XR CHEST 2 VIEWS PA AND OVRUTEDGXCU91/09/2025 5:48 PM CDT CBC WITH AUTO OHJTZFCLKOHDNVUZ49/09/2025 5:31 PM CDT TROPONIN T (HS) ACUTE W/2HR UOMSWITNCV66/09/2025 5:31 PM CDT COMP METABOLIC WPCMKPSJL05/09/2025 5:31 PM CDT CBC WITH AUTO XYZETXULBTRQVQGN77/09/2025 5:31 PM CDT BEDSIDE US STUDY RYJJHBMMenwwxl35/09/2025 5:21 PM CDTPROTIME-INRRoutine 06/03/2025 7:47 AM CDT Hypoattentuated leaflet thickening (HALT) Anticoagulation monitoring, INR range 2-3 SCAN-ELECTROCARDIOGRAM EKG1 12:00 AM CDTPROTIME-WCUFwblswn42/06/2025 12:38 PM CDT Hypoattentuated leaflet thickening (HALT) Anticoagulation monitoring, INR range 2-3 PROTIME-RAEIucyyqr79/02/2025 12:58 PM CDT Hypoattentuated leaflet thickening (HALT) Anticoagulation monitoring, INR range 2-3 PROTIME-CIWGwrjppt51/29/2025 1:26 PM CDT Hypoattentuated leaflet thickening (HALT) Anticoagulation monitoring, INR range 2-3 PROTIME-PVGLblicbg64/26/2025 1:28 PM CDT Hypoattentuated leaflet thickening (HALT) Anticoagulation monitoring, INR range 2-3 PROTIME-RQMIenzprz80/23/2025 3:04 PM CDT Hypoattentuated leaflet thickening (HALT) Anticoagulation monitoring, INR range 2-3 PROTIME-PWBUluphxu28/17/2025 10:06 AM CDT Hypoattentuated leaflet thickening (HALT) Anticoagulation monitoring, INR range 2-3 LIPID PANEL W REFLEX MEASURED EZVWqknbvm35/07/2025 4:07 PM CDT Hyperlipidemia, unspecified hyperlipidemia type ANTI HCVAdd On07/31/2021 1:55 PM FAMILY PROTECTION SPECIALIST Need for hepatitis C screening test from Last 3 Months or Most Recently Relevant to Health Maintenance Results * PATH TISSUE EXAM (07/28/2025 7:52 AM FAMILY PROTECTION SPECIALIST) Only the most recent of2 resultswithin the time period is included. ComponentValueRef RangeTest MethodAnalysis TimePerformed AtPathologist Signature Case ReportPathology Report ?Case: [id number] ? Authorizing Provider: ??Rahat Vernon MD ?Collected: ? 07/28/2025 0752 ? Ordering Location: ? [facility] ?Received: ?07/28/2025 1350 ? [facility] ? Pathologist: ? Bud Nixon MD ? Specimens: ?? A) - Esophageal Biopsy ? B) - Ascending Colon Polyp ? 07/30/2025 11:00 AM [facility] LABORATORYFinal DiagnosisA) ESOPHAGUS, BIOPSY: 1. Inflammatory changes consistent with reflux esophagitis 2. Negative for eosinophilic esophagitis 3. Negative for columnar mucosa B) COLON, ASCENDING, POLYPECTOMY: 1. Tubular adenoma 2. Negative for high grade dysplasia 3. Per the colonoscopy report: ?? a. Polyp size: 4 mm ?? b. Resection: Complete ?? c. Retrieval: Complete 07/30/2025 11:00 AM [place] [facility] [address] [facility]ENTERClinical InformationMrJenna Joe is a 69 year-old with dysphagia who undergoes upper GI kxpadlvuc63/05/2025 11:00 AM [place] [facility] LABORATORYGross DescriptionA) Received in formalin are 8 cobb mucosal fragments ranging from 2 mm to 4 mm in greatest dimension, which are entirely submitted in one cassette. It is labeled with the patient's name and designatedesophageal biopsy. B) Received in formalin are 6 cobb mucosal fragments ranging from 2 mm to 4 mm in greatest dimension, which are entirely submitted in one cassette. It is labeled with the patient's name and designatedascending colon polyp. Jaylin Massey 07/29/2025 2:21 PM 07/30/2025 11:00 AM [place] [facility] LABORATORYMicroscopic DescriptionThe final diagnosis is based on microscopic examination of appropriate sections of all specimens.07/30/2025 11:00 AM CSTGRE[facility]TRAL LABORATORYAdditional Information Interpreted at [facility] - [address], [place], [place] [address]/30/2025 11:00 AM CST[facility] CENTRAL LABORATORYSpecimen (Source)Anatomical Location / LateralityCollection Method / VolumeCollection TimeReceived TimeBiopsy (Esophageal Biopsy)07/28/2025 7:52 AM CST07/28/2025 1:50 PM CSTSpecimen from mass lesion (specimen) (Ascending Colon Polyp)07/28/2025 8:03 AM CST07/28/2025 1:50 PM FAMILY PROTECTION SPECIALIST Narrative Authorizing ProviderResult TypeResult StatusEric Sukumar Vernon MD PATHOLOGY/CYTOLOGYFinal ResultPerforming OrganizationAddressCity/State/ZIP Code Phone Number [facility] [address] [place] [address], * ENDOSCOPY (07/28/2025 7:26 AM FAMILY PROTECTION SPECIALIST)Specimen (Source)Anatomical Location / LateralityCollection Method / VolumeCollection TimeReceived Time07/28/2025 7:26 AM FAMILY PROTECTION SPECIALIST Narrative Transcriptions Rahat Vernon MD - 07/28/2025 8:23 AM CST Patient Name: Mane Joe Procedure Date: 07/28/2025 Gender: Male Date of : 1955 Admit Type: Ambulatory Procedure: Upper GI endoscopy Proceduralist: Rahat Vernon MD [facility] Referring MD: Hector Connelly Indications/Pre-Op Diagnosis: Dysphagia Medications: Propofol per Anesthesia Procedure Description: Risk of bleeding, infection, perforation, need for surgery and alternatives discussed. The endoscope [id number] was introduced through the mouth, and advanced to the second part of duodenum. The upper GI endoscopy was accomplished without difficulty. The patient tolerated the procedure well. Complications: No immediate complications. Estimated Blood Loss & Specimen: Estimated blood loss was minimal. Findings: Mucosal changes including white plaques were found in the upper thirdof the esophagus and in the middle third of the esophagus. Biopsies were taken with a cold forceps for histology. There is no endoscopic evidence of stricture at the gastroesophageal junction. The entire examined stomach was normal. The examined duodenum was normal. The exam was otherwise without abnormality. Impressions/Post-Op Diagnosis: - Esophageal mucosal changes suspicious for eosinophilic esophagitis. Biopsied. - Normal stomach. - Normal examined duodenum. - The examination was otherwise normal. Recommendation: - Await pathology results. - If eosinophilic esophagitis is present, would recommend starting treatment given symptoms of dysphagia. If it is not, would recommend further workup for functional issues related to his dysphagia. Moderate Sedation: See the other procedure note for documentation of moderate sedationwith intraservice time. Rahat Vernon MD 07/28/2025 8:23:45 AM Note Initiated On: 07/28/2025 7:26 AM Authorizing ProviderResult TypeResult StatusEric Sukumar Vernon MDPROCEDURE ORD Final Result * COLONOSCOPY (07/28/2025 7:12 AM FAMILY PROTECTION SPECIALIST)Specimen (Source)Anatomical Location / LateralityCollection Method / VolumeCollection TimeReceived Time07/28/2025 7:12 AM FAMILY PROTECTION SPECIALIST Narrative Transcriptions Rahat Vernon MD - 07/28/2025 8:25 AM CST Patient Name: Mane Joe Procedure Date: 07/28/2025 Gender: Male Date of : 1955 Admit Type: Ambulatory Procedure: Colonoscopy Proceduralist: Rahat Vernon MD [facility] MD: Hector Connelly Indications/Pre-Op Diagnosis: Screening for colorectal malignantneoplasm Medications: Propofol per Anesthesia Procedure Description: The patient had risks, benefits and alternatives explained to andgave informed consent. The patient had a stable cardiopulmonary status and judged an adequate candidate for conscious sedation. The endoscope [id number] was passed through the anus andadvanced to the cecum, identified by appendiceal orifice and ileocecal valve.The colonoscopy was performed without difficulty. The patient toleratedthe procedure well. The quality of the bowel preparation was good. The ileocecal valve, appendiceal orifice, and rectum were photographed. Complications: No immediate complications. Estimated Blood Loss & Specimen: Estimated blood loss: none. Findings: The perianal and digital rectal examinations were normal. A 4 mm polyp was found in the ascending colon. The polyp was semi-sessile. The polyp was removed with a hot snare. Resection and retrieval were complete. Verification of patient identification forthe specimen was done. The exam was otherwise without abnormality. Impressions/Post-Op Diagnosis: - One 4 mm polyp in the ascending colon, removed with a hot snare. Resected and retrieved. - The examination was otherwise normal. Recommendation: - Await pathology results. - Repeat colonoscopy in 7-10 years for surveillance. Rahat Vernon MD 07/28/2025 8:25:08 AM Note Initiated On: 07/28/2025 7:12 AM Authorizing ProviderResult TypeResult StatusEric Sukumar Vernon MDPROCEDURE ORD Final Result * (ABNORMAL) PROTIME-INR [[id number]] - Standing Order (07/21/2025 10:39 AM FAMILY PROTECTION SPECIALIST) Only the most recent of15 resultswithin the time period is included. ComponentValueRef RangeTest MethodAnalysis TimePerformed AtPathologist Signature INR1.8(H)<1. 11:06 AM [facility] LABORATORYPROTIME 21.2(H)10.6 - 12.4 sec07/21/2025 11:06 AM [facility] Specimen (Source)Anatomical Location / LateralityCollection Method / Volume Collection TimeReceived TimeBloodBLOOD SPECIMEN / UnknownQuest Collect / Unknown 07/21/2025 10:39 AM CST07/21/2025 10:39 AM FAMILY PROTECTION SPECIALIST Narrative [facility] - 07/21/2025 11:06 AM FAMILY PROTECTION SPECIALIST Therapeutic Range 2.0-3.0 for most anticoagulated patients 2.5-3.5 or 4.0 for high risk patients The INR is only used for patients on stable oral anticoagulant therapy. It makes no significant contribution to the diagnosis or treatment of patients whose Protime is prolonged for other reasons. INR results are increased when heparin levels exceed 1.0 U/mL, which corresponds to an aPTT >125seconds if the patient is on UFH. Authorizing ProviderResult TypeResult StatusZachary Lico THOMPSON HEMATOLOGYFinal ResultPerforming OrganizationAddressCity/State/ZIP CodePhone Number [facility] [address] [place] [address] * ECHO TTE LIMITED WO CONTRAST W COLOR W LTD DOPPLER (06/04/2025 2:33 PM CDT) ComponentValueRef RangeTest MethodAnalysis TimePerformed AtPathologist SignatureAORTIC VALVE MEAN XA9jhDoFCWUUSFQ AZJYWKDJ07%LVEDD4.4cmEJECTION OAYOQQEN94 - 60%Anatomical RegionLateralityModalityUltrasoundSpecimen (Source) Anatomical Location / LateralityCollection Method / VolumeCollection Time Received Time06/04/2025 1:33 PM CDT Narrative 06/04/2025 2:50 PM CDT ECHOCARDIOGRAM MANE JOE ?Accession#: ?? [id number] : ?1955 69 years Study Date: ?? 06/04/2025 1:33:27 PM Gender: M ? BP: ? 173/74 mmHg Height: 182.00 cm ? BSA: ?1.90 m? Weight: 70.00 kg ?Tech: ? CJG, JASWINDER ?Referring MD: STEPHAN MCKINLEY Site: ? [facility] Reading Location: [facility] Patient Location: Inpatient. Procedure: Limited 2D , Color Doppler and Limited Spectral Doppler. Indication for study: TAVR Cardiac Rhythm: Sinus bradycardia.Study quality: Good. Final Impressions: Limited Echocardiogram performed 1. Normal left ventricular size, normal wall thickness, normal global systolic function, calculatedEF of 60 %. 2. Right ventricular cavity size is mildly enlarged, global systolic RV function is normal. 3. The aortic valve is functioning 26 mm Medardo 3 Ultra bioprosthesis AVR, no stenosis and trivial regurgitation. 4. The inferior vena cava is normal sized, respiratory size variation greater than 50%. Comparison Compared to prior exam of 04/20/2025, there has been no significant change. Chamber Sizes and Function Normal left ventricular size, normal wall thickness, normal global systolic function, calculated EFof 60 %. Right ventricular cavity size is mildly enlarged, global systolic RV function is normal. The right atrium is mildly enlarged. The pulmonary artery is of normal size and origin. Valves, RV Pressures and Diastolic Function The aortic valve is functioning 26 mm Medardo 3 Ultra bioprosthesis replacement, no stenosis and trivial regurgitation. The mitral valve is normal in structure, trace mitral regurgitation. The tricuspid valve is normal in structure, mild tricuspid regurgitation. The pulmonic valve is normal. Trace pulmonic regurgitation is present on color flow. Masses, Effusion, Shunts There is no pericardial effusion. The inferior vena cava is normal sized, respiratory size variation greater than 50%. MEASUREMENTS AND CALCULATIONS 2-D Measurements and LV Function: LVID (d) ? 4.4 cm Planimetered EF 60 % LVID (s) ? 3.2 cm LV FS% (2D) ? 27 % IVS (d) ?1.0 cm LVOT diameter ?? 2.3 cm LVPW (d) ? 1.1 cm HR ?56 bpm Ao Sinus ULN 4.1 cm Asc Ao ? 3.5 cm Asc Ao ULN ?? 4.2 cm Aortic Valve: Vmax ? 1.9 m/s ??KELLY (V) ?? 2.37 cm? VTI ?0.50 m ?? KELLY (I) ?? 2.17 cm? LVOT V max 1.1 m/s ??Max PG ?15 mmHg LVOT VTI ?? 0.26 m ?? Mean PG ?? 9 mmHg SV ? 108 ml ?? Dim Index 0.52 SV index ?? 57 ml/m? CO ?6.1 l/min ?CI ?3.2 l/min/m? Tricuspid Valve and estimated PA pressures: TAPSE 2.3 cm . This study was interpreted by an [facility] accredited facility. ??Final ?? Procedure Note Andrew Gaines MD - 06/04/2025 ECHOCARDIOGRAM MANE JOE : 1955 69 years Study Date: 06/04/2025 1:33:27 PM Gender: M BP: 173/74 mmHg Height: 182.00 cm BSA: 1.90 m? Weight: 70.00 kg Tech: JASWINDER WOODS Referring MD: STEPHAN MCKINLEY Site: [facility] Reading Location: [facility] Patient Location: Inpatient. Procedure: Limited 2D , Color Doppler and Limited Spectral Doppler. Indication for study: TAVR Cardiac Rhythm: Sinus bradycardia.Study quality: Good. Final Impressions: Limited Echocardiogram performed 1. Normal left ventricular size, normal wall thickness, normal globalsystolic function, calculated EF of 60 %. 2. Right ventricular cavity size is mildly enlarged, global systolic RVfunction is normal. 3. The aortic valve is functioning 26 mm Medardo 3 Ultra bioprosthesisAVR, no stenosis and trivial regurgitation. 4. The inferior vena cava is normal sized, respiratory size variationgreater than 50%. Comparison Compared to prior exam of 04/20/2025, there has been no significantchange. Chamber Sizes and Function Normal left ventricular size, normal wall thickness, normal globalsystolic function, calculated EF of 60 %. Right ventricular cavity size ismildly enlarged, global systolic RV function is normal. The right atriumis mildly enlarged. The pulmonary artery is of normal size and origin. Valves, RV Pressures and Diastolic Function The aortic valve is functioning 26 mm Medardo 3 Ultra bioprosthesisreplacement, no stenosis and trivial regurgitation. The mitral valve isnormal in structure, trace mitral regurgitation. The tricuspid valve isnormal in structure, mild tricuspid regurgitation. The pulmonic valve isnormal. Trace pulmonic regurgitation is present on color flow. Masses, Effusion, Shunts There is no pericardial effusion. The inferior vena cava is normal sized, respiratory size variation greater than 50%. MEASUREMENTS AND CALCULATIONS 2-D Measurements and LV Function: LVID (d) 4.4 cm Planimetered EF 60 % LVID (s) 3.2 cm LV FS% (2D) 27 % IVS (d) 1.0 cm LVOT diameter 2.3 cm LVPW (d) 1.1 cm HR 56 bpm Ao Sinus ULN 4.1 cm Asc Ao 3.5 cm Asc Ao ULN 4.2 cm Aortic Valve: Vmax 1.9 m/s KELLY (V) 2.37 cm? VTI 0.50 m KELLY (I) 2.17 cm? LVOT V max 1.1 m/s Max PG 15 mmHg LVOT VTI 0.26 m Mean PG 9 mmHg SV 108 ml Dim Index 0.52 SV index 57 ml/m? CO 6.1 l/min CI 3.2 l/min/m? Tricuspid Valve and estimated PA pressures: TAPSE 2.3 cm . This study was interpreted by an [facility] accredited facility. Final Authorizing ProviderResult TypeResult StatusStephan Mckinley MDECHRebecca ORDFinal Result * ECG STAT (06/04/2025 12:47 PM CDT)ComponentValueRef RangeTest MethodAnalysis TimePerformed AtPathologist SignatureInterpretationSinus bradycardia Otherwise normal ECG When compared with ECG of 26-Mar-2025 05:44, No significant change was found BEYOND NOWVentricular Jebh79NAWZRGNCK NOWAtrial Yuer63PLUFPTQGL NOWP-R Interval 152msBEYOND NOWQRS Dtkjkrsf18sbKAPREK GSKOU647bdSABDAZ NTOAWj110ykNWUHGY NOWP Zjzb05kbmtkihUIVKIT NOWR Dewar-5degreesBEYOND NOWT Dglt22esvhjluICYDET NOW Specimen (Source)Anatomical Location / LateralityCollection Method / Volume Collection TimeReceived Time06/04/2025 12:47 PM CDT1 3:45 PM CDT Narrative Authorizing ProviderResult TypeResult StatusStephan Mckinley MDEKG ORDFinal ResultPerforming OrganizationAddressCity/State/ZIP CodePhone Number [place], [place] * (ABNORMAL) GLUCOSE METER (06/04/2025 11:51 AM CDT) Only the most recent of3 resultswithin the time period is included. ComponentValueRef RangeTest MethodAnalysis TimePerformed AtPathologist Signature GLUCOSE WPMJP618(H)65 - 100 mg/dL06/04/2025 11:52 AM CDTALST. JOSEPHS ARE[facility]-CENTRAL LABORATORYSpecimen (Source)Anatomical Location / Laterality Collection Method / VolumeCollection TimeReceived TimeBloodBLOOD SPECIMEN / Spmsxwh3806/04/2025 11:51 AM CDT1 11:52 AM CDT Narrative Authorizing ProviderResult TypeResult StatusKetan Xie NPCHEMISTRY Final ResultPerforming OrganizationAddressty/State/ZIP CodePhone Number [facility] [address] [place] [address], * (ABNORMAL) Hemoglobin AM (06/04/2025 4:24 AM CDT)ComponentValueRef RangeTest MethodAnalysis TimePerformed AtPathologist KgpimugdtEDRDJDXOVJ46.9(L)13.5 - 17.5 g/dL06/04/2025 5:00 AM [facility]-CENTRAL LABORATORYMCV 8980 - 100 fL06/04/2025 5:00 AM [facility] Specimen (Source)Anatomical Location / LateralityCollection Method / Volume Collection TimeReceived TimeBloodBLOOD SPECIMEN / UnknownVenipuncture / Mavfkax9606/04/2025 4:24 AM CDT1 4:40 AM CDT Narrative Authorizing ProviderResult TypeResult StatusZulma Hubbard MDHEMATOLOGYFinal ResultPerforming OrganizationAddressCity/State/ZIP CodePhone Number [facility] [address] [place] [address], * (ABNORMAL) Hepatic function panel AM (06/04/2025 4:24 AM CDT)ComponentValueRef RangeTest MethodAnalysis TimePerformed AtPathologist SignatureALBUMIN3.3(L) 4.0 - 4.9 g/dL06/04/2025 5:14 AM [facility]ORAT[facility]-CENTRAL LABORATORYPROTEIN,TOTAL6.16.0 - 8.0 g/dL06/04/2025 5:14 AM [facility]-CENTRAL LABORATORYBILIRUBIN,TOTAL2.2(H)0.0 - 1.2 mg/dL06/04/2025 5:14 AM [facility]ORY-CENTRAL LABORATORYBILIRUBIN,DIRECT0.7(H) 0.0 - 0.2 mg/dL06/04/2025 5:14 AM [facility] LAB[facility]ATORY-CENTRAL LABORATORYBILIRUBIN,INDIRECT1.5(H)0.2 - 0.8 mg/dL06/04/2025 5:14 AM [facility]-CENTRAL LABORATORYALK CYVHRKEDFUQ1536 - 129 IU/L1 5:14 AM [facility]AL LABORATORYALT (SGPT)1210 - 50 IU/L 06/04/2025 5:14 AM [facility]ENTRAL LABORATORYAST (SGOT)20 10 - 50 IU/L1 5:14 AM [facility] Specimen (Source)Anatomical Location / LateralityCollection Method / Volume Collection TimeReceived TimeBloodBLOOD SPECIMEN / UnknownVenipuncture / Aeutfvh3206/04/2025 4:24 AM CDT1 4:40 AM CDT Narrative Authorizing ProviderResult TypeResult StatusLeslie Lilian Hubbard MDCHEMISTRYFinal ResultPerforming OrganizationAddressCity/State/ZIP CodePhone Number [facility] [facility] [address] [address], * (ABNORMAL) Basic metabolic panel AM (06/04/2025 4:24 AM CDT)ComponentValueRef RangeTest MethodAnalysis TimePerformed AtPathologist KmaoijplaQHBACR859943 - 145 mmol/L1 5:21 AM [facility] POTASSIUM4.23.5 - 5.1 mmol/L1 5:21 AM [facility] ZOZRREIBKHIXFFYYVI89219 - 107 mmol/L1 5:21 AM [facility] LABORATORYCO2,MITTG5610 - 29 mmol/L1 5:21 AM [facility] LABORATORYANION GAP75 - 181 5:21 AM [facility] WBOPHXJITHUTSTSWL318(H)70 - 99 mg/dL06/04/2025 5:21 AM [facility] LABORATORYCALCIUM 8.7(L)8.8 - 10.4 mg/dL06/04/2025 5:21 AM [facility]ATORYComment: Reference ranges for this test were updated on 06/30/2024 to reflect our healthy population more accurately. Reference range changes are not retroactively applied to results, but previous results using the same methodology can be interpreted in the context of the new reference range. LHS280 - 23 mg/dL06/04/2025 5:21 AM [facility]TRAL LABORATORYCREATININE1.080.70 - 1.20 mg/dL06/04/2025 5:21 AM [facility]-CENTRAL LABORATORYBUN/CREAT KUIKA6391 - 5:21 AM CDT [facility] NNEOVKZMYSkALG22(L)>90 mL/min/1.53k12906/04/2025 5:21 AM [facility] LABORATORYComment:As of 11/07/2021, eGFR is calculated by the CKD-EPI creatinine equation without race adjustment. ??eGFR can be influenced by muscle mass, exercise, and diet. ??The reported eGFR is an estimation onlyand is only applicable if the renal function is stable. Specimen (Source)Anatomical Location / LateralityCollection Method / Volume Collection TimeReceived TimeBloodBLOOD SPECIMEN / UnknownVenipuncture / Unknown 06/04/2025 4:24 AM CDT1 4:40 AM CDT Narrative Authorizing ProviderResult TypeResult StatusZulma Hubbard MDCHEMISTRYFinal ResultPerforming OrganizationAddressCity/State/ZIP CodePhone Number [facility] [address] [place] [address], * SCAN-CARDIAC STRIP (06/04/2025 1:36 AM CDT) Narrative Authorizing ProviderResult TypeResult StatusScannerOTHERFinal Result * TROPONIN T (HS) ONE TIME (06/03/2025 7:53 PM CDT)ComponentValueRef RangeTest MethodAnalysis TimePerformed AtPathologist SignatureTROPONIN T HS86-15 ng/L ng/L1 8:27 PM [facility] LABORATORYSpecimen (Source)Anatomical Location / LateralityCollection Method / VolumeCollection TimeReceived TimeBloodBLOOD SPECIMEN / UnknownNon-Lab Venipuncture / Unknown 06/03/2025 7:53 PM CDT1 7:58 PM CDT Narrative Authorizing ProviderResult TypeResult StatusDasejal Rosado MDCHEMISTRYFinal Result Performing OrganizationAddressCity/State/ZIP CodePhone Number [facility] [address] [address], [place] * (ABNORMAL) URINALYSIS MICROSCOPIC (06/03/2025 6:39 PM CDT)ComponentValueRef RangeTest MethodAnalysis TimePerformed AtPathologist YwnexabjgVAU4-12-8, None Seen /HPF06/03/2025 6:51 PM [facility]AL LABORATORYWBC 6-10(A)0-2, 3-5, None Seen /HPF06/03/2025 6:51 PM [facility]AL LABORATORYBACTERIANone SeenNone Seen, Rare, Few Bacteria/HPF06/03/2025 6:51 PM [facility]-CENTRAL LABORATORYEPITHELIAL CELLSNone SeenNone Seen, Few Epi/HPF06/03/2025 6:51 PM [facility]TRAL LABORATORYHYALINE CASTS0-20-2, 3-5 /LP06/03/2025 6:51 PM [facility] LABORATORYSpecimen (Source)Anatomical Location / LateralityCollection Method / VolumeCollection TimeReceived TimeUrineURINE SPECIMEN / UnknownNon-Blood / Rarcgqj8006/03/2025 6:39 PM CDT1 6:39 PM CDT Narrative Authorizing ProviderResult TypeResult StatusDarren Robert Rosado MDURINEFinal Result Performing OrganizationAddressty/State/ZIP CodePhone Number [facility] [address] [address], [place] * (ABNORMAL) URINALYSIS W REFLEX MICROSCOPIC IF POSITIVE (06/03/2025 6:39 PM CDT)ComponentValueRef RangeTest MethodAnalysis TimePerformed AtPathologist SignatureCOLORYellowYellow Color06/03/2025 6:51 PM [facility] LABORATORYCLARITYClearClear Ylnugha1606/03/2025 6:51 PM CDT [facility]ORATORYSPECIFIC GRAVITY,URINE>=1.030(A) 1.010, 1.015, 1.020, 1.0416306/03/2025 6:51 PM [facility] C[facility]AL LABORATORYPH,URINE7.06.0, 7.0, 8.0, 5.5, 6.5, 7.5, 8. 6:51 PM [facility] LABORATORYUROBILINOGEN,QUALITATIVE NormalNormal EU/dl06/03/2025 6:51 PM [facility]-CENTRAL LABORATORYPROTEIN, URINE30(A)Negative mg/dL06/03/2025 6:51 PM [facility] LABORATORYGLUCOSE, URINE>=1000(A)Negative mg/dL06/03/2025 6:51 PM [facility] LABORATORYKETONES,URINE40(A) Negative mg/dL06/03/2025 6:51 PM [facility] LABORATORYBILIRUBIN,YFCGTSazixstkUhawdhqu29/09/2025 6:51 PM [facility] LABORATORYOCCULT BLOOD,ZCNMJLexsnaihOcteptgt64/09/2025 6:51 PM [facility] LABORATORYNITRITENegativeNegative 06/03/2025 6:51 PM [facility] LABORATORYLEUKOCYTE ESTERASETrace(A)Nnulxouy22/09/2025 6:51 PM [facility] LABORATORYSpecimen (Source)Anatomical Location / LateralityCollection Method / VolumeCollection TimeReceived TimeUrineURINE SPECIMEN / UnknownNon-Blood / Jhatcpv8106/03/2025 6:39 PM CDT1 6:39 PM CDT Narrative Authorizing ProviderResult TypeResult StatusDarrjoleen Rosado MDURINEFinal Result Performing OrganizationAddressCity/State/ZIP CodePhone Number [facility] [address] [address], * XR CHEST 2 VIEWS PA AND LATERAL (06/03/2025 5:48 PM CDT)Anatomical Region LateralityModalityCHEST, THORAX, Lung, HEARTDigital RadiographySpecimen (Source)Anatomical Location / LateralityCollection Method / VolumeCollection TimeReceived Time06/03/2025 5:50 PM CDT Narrative 06/03/2025 5:50 PM CDT For Patients: As a result of the Cures Act, medical imaging exams and procedure reports are released immediately into your electronic medical record. You may view this report before your referring provider. If you have questions, please contact your health care provider. Indication: Chest pain. Technique: Chest 2 views. Comparison: Chest radiograph 08/03/2024. Findings/Impression: Cardiovascular and mediastinum: ??Heart size is normal. ??TAVR in place. Lungs and pleural spaces: ??Lungs are clear. ??No pleural effusion or pneumothorax. Bones and soft tissues: ??No significant findings. Dictated by Uzma La MD @ 06/03/2025 5:50:40 PM (Electronically Signed) Procedure Note Uzma La MD - 06/03/2025 For Patients: As a result of the Cures Act, medical imagingexams and procedure reports are released immediately into your electronicmedical record. You may view this report before your referring provider.If you have questions, please contact your health care provider. Indication: Chest pain. Technique: Chest 2 views. Comparison: Chest radiograph 08/03/2024. Findings/Impression: Cardiovascular and mediastinum: Heart size is normal. TAVR in place. Lungs and pleural spaces: Lungs are clear. No pleural effusion orpneumothorax. Bones and soft tissues: No significant findings. Dictated by Uzma La MD @ 06/03/2025 5:50:40 PM (Electronically Signed) Authorizing ProviderResult TypeResult StatusDarrjoleen Rosado MDGENERAL IMAGINGFinal Result * TROPONIN T (HS) ACUTE W/2HR REFLEX (06/03/2025 5:31 PM CDT)ComponentValueRef RangeTest MethodAnalysis TimePerformed AtPathologist SignatureTROPONIN T HS11 6-15 ng/L ng/L1 6:04 PM [facility]-CENTRAL LABORATORYSpecimen (Source)Anatomical Location / LateralityCollection Method / VolumeCollection TimeReceived TimeBloodBLOOD SPECIMEN / UnknownLine/Port / Oirbnvn6406/03/2025 5:31 PM CDT1 5:37 PM CDT Narrative [facility] - 06/03/2025 6:04 PM CDT hs-cTnT (Elecsys Troponin T Gen 5) concentration (s) above the sex-specific 99th percentile (16 ng/L or greater for males or 11 ng/L or greater for females) are indicative of myocardial injury. If initial hs-cTnT <=100 ng/L at presentation, a 0h/2h ABSOLUTE (ng/L) delta change (rising or falling) of >=10 ng/L suggests a significant change, whereas a 0h/2h delta change <=3 ng/L suggests no significant change. If initial hs-cTnT >100 ng/L at presentation, a 0h/2h/ RELATIVE (percent, %) delta change of 20%is suggested to distinguish patients with acute vs. chronic myocardial injury. There are multiple etiologies that can cause hs-cTnT increases above the 99th percentile (myocardial injury) other than acute myocardial infarction. Clinical context and careful clinical evaluation are critical for diagnosis and risk- stratification. The diagnosis of acute myocardial infarction requires a rising and/or falling pattern in hs-cTnT concentrations with at least one value above the sex-specific 99th percentile PLUS at least one of the following clinical criteria: ischemic symptoms, new or presumed new significant ST-T wave changes or new LBBB, development of pathological Q waves, imaging evidence of new loss of viable myocardium or new regional wall motion abnormality, or identification of intracoronary atherothrombosis or an acute angiographic culprit on coronary angiography. In appropriate low-risk patients with a non-ischemic electrocardiogram without active chest pain with a symptom onset >3-hours without recurrence, a single initial hs-cTnT<6 ng/L identifies patient with a very low risk in emergency department patient population. Authorizing ProviderResult TypeResult StatusDarren Robert Rosado MDCHEMISTRYFinal Result Performing OrganizationAddressCity/State/ZIP CodePhone Number [facility] [address] [place] [address], [place] * (ABNORMAL) CBC WITH AUTO DIFFERENTIAL (06/03/2025 5:31 PM CDT)ComponentValue Ref RangeTest MethodAnalysis TimePerformed AtPathologist SignatureWHITE BLOOD COUNT6.04.5 - 11.0 thou/cu mm06/03/2025 5:40 PM CDTALST[facility]- CENTRAL LABORATORYRED BLOOD COUNT4.444.30 - 5.90 mil/cu mm06/03/2025 5:40 PM [facility] LXMJBRUOJSNJISLWWCPK84.8(L)13.5 - 17.5 g/dL06/03/2025 5:40 PM [facility] RJKIURRFHB15.837.0 - 53.0 %06/03/2025 5:40 PM [facility] PVFUTHOKWLUZH7473 - 100 fL06/03/2025 5:40 PM [facility] RAKWNIIKJXOLV29.826.0 - 34.0 pg06/03/2025 5:40 PM [facility] DVNACEEQVYYRLJ62.232.0 - 36.0 g/dL06/03/2025 5:40 PM [facility] LUZNCKVYFLKYF91.411.5 - 15.5 % 06/03/2025 5:40 PM [facility] LABORATORYPLATELET NMKRH238959 - 440 thou/cu mm06/03/2025 5:40 PM [facility] CFBVCYJUOLWFF56.96.5 - 11.0 fL06/03/2025 5:40 PM [facility] LABORATORYNRBC0.0%06/03/2025 5:40 PM [facility] LABORATORYABS NRBC0.0thou /cu mm06/03/2025 5:40 PM CDT [facility]% NEUT67.0%06/03/2025 5:40 PM CDT [facility]% LYMPH17.4%06/03/2025 5:40 PM CDT [facility]% MONO13.1%06/03/2025 5:40 PM CDT [facility]% EOS1.5%06/03/2025 5:40 PM CDT [facility]% BASO0.8%06/03/2025 5:40 PM CDT [facility]% IMMATURE GRAN (METAS,MYELOS,PROS) 0.2%06/03/2025 5:40 PM [facility] LABORATORYABSOLUTE NEUTROPHILS4.01.7 - 7.0 thou/cu mm06/03/2025 5:40 PM [facility] LABORATORYABSOLUTE LYMPHOCYTES1.00.9 - 2.9 thou/cu mm 06/03/2025 5:40 PM [facility] LABORATORYABSOLUTE MONOCYTES0.8<0.9 thou/cu mm06/03/2025 5:40 PM [facility] LABORATORYABSOLUTE EOSINOPHILS0.1<0.5 thou/cu mm06/03/2025 5:40 PM CDT [facility]ATORYABSOLUTE BASOPHILS0.1<0.3 thou/cu mm06/03/2025 5:40 PM [facility] LABORATORYABSOLUTE IMMATURE GRANULOCYTES(METAS,MYELOS,PROS)0.0<0.3 thou/cu mm06/03/2025 5:40 PM [facility] LABORATORYSpecimen (Source)Anatomical Location / LateralityCollection Method / VolumeCollection TimeReceived Time BloodBLOOD SPECIMEN / UnknownLine/Port / Qlkqijm9206/03/2025 5:31 PM CDT 06/03/2025 5:37 PM CDT Narrative Authorizing ProviderResult TypeResult StatusDarren Robert Rosado MDHEMATOLOGYFinal ResultPerforming OrganizationAddressCity/State/ZIP CodePhone Number [facility] [address] [place] [address], * (ABNORMAL) COMP METABOLIC PANEL (06/03/2025 5:31 PM CDT)ComponentValueRef RangeTest MethodAnalysis TimePerformed AtPathologist YngtpcqitTIMGHJ414298 - 145 mmol/L1 6:04 PM [facility] POTASSIUM5.2(H)3.5 - 5.1 mmol/L1 6:04 PM [facility] BSDRKNQPFBARFRRJER10318 - 107 mmol/L1 6:04 PM [facility] LABORATORYCO2,PTLKS7958 - 29 mmol/L1 6:04 PM [facility] LABORATORYANION GAP95 - 181 6:04 PM [facility] OWOGHBWUTJBHKGVXM729(H)70 - 99 mg/dL06/03/2025 6:04 PM [facility] LABORATORYCALCIUM 9.18.8 - 10.4 mg/dL06/03/2025 6:04 PM [facility] LABORATORYComment: Reference ranges for this test were updated on 06/30/2024 to reflect our healthy population more accurately. Reference range changes are not retroactively applied to results, but previous results using the same methodology can be interpreted in the context of the new reference range. AEJ356 - 23 mg/dL06/03/2025 6:04 PM [facility] LABORATORYCREATININE1.70(H)0.70 - 1.20 mg/dL06/03/2025 6:04 PM [facility] LABORATORYBUN/CREAT CVUSQ4147 - 6:04 PM [facility] DPLWETSKRVmJVY87(L)>90 mL/min/1.85w64006/03/2025 6:04 PM [facility]ATORYComment:As of 11/07/2021, eGFR is calculated by the CKD-EPI creatinine equation without race adjustment. ??eGFR can be influenced by muscle mass, exercise, and diet. ??The reported eGFR is an estimation onlyand is only applicable if the renal function is stable. ALBUMIN3.6(L)4.0 - 4.9 g/dL06/03/2025 6:04 PM [facility] CENTRAL LABORATORYPROTEIN,TOTAL6.46.0 - 8.0 g/dL06/03/2025 6:04 PM [facility] LABORATORYBILIRUBIN,TOTAL2.2(H)0.0 - 1.2 mg/dL 06/03/2025 6:04 PM [facility] LABORATORYALK PHOSPHATASE 8640 - 129 IU/L1 6:04 PM [facility] ALT (SGPT)1510 - 50 IU/L1 6:04 PM [facility] LABORATORYAST (SGOT)2410 - 50 IU/L10/04/2025 6:04 PM [facility] panpanCENTRAL LABORATORYSpecimen (Source)Anatomical Location / Laterality Collection Method / VolumeCollection TimeReceived TimeBloodBLOOD SPECIMEN / UnknownLine/Port / Oeialeu5106/03/2025 5:31 PM CDT1 5:37 PM CDT Narrative Authorizing ProviderResult TypeResult StatusDarrjoleen Rosado MDCHEMISTRYFinal Result Performing OrganizationAddressCity/State/ZIP CodePhone Number [facility] [address] [place] [address], * SCAN-ELECTROCARDIOGRAM EKG (06/03/2025 12:00 AM CDT) Narrative Authorizing ProviderResult TypeResult StatusScannerOTHERFinal Result * LIPID PANEL W REFLEX MEASURED LDL (11/30/2024 4:07 PM CDT)ComponentValueRef RangeTest MethodAnalysis TimePerformed AtPathologist SignatureCHOLESTEROL, HMOFJ629<200 mg/dLBlackwaveeHDL MLCSUOIPSIL16> OR = 40 mg/dL [place] DctyJZXWHCUZTAQNU835<150 mg/dLBlackwaveeLDL-RCNNRVDGLDH08kw/dL (calc)Travolver DaleComment: Reference range: <100 Desirable range <100 mg/dL for primary prevention; <70 mg/dL for patients with CHD or diabetic patients with > or = 2 CHD risk factors. LDL-C is now calculated using the Senthil-Spencer calculation, which is a validated novel method providing better accuracy than the Friedewald equation in the estimation of LDL-C. Senthil SS et al. JESSY. 2013;310(19): 5404-6536 (http://education.IroFit/faq/HQY439) CHOL/HDLC RATIO2.2<5.0 (calc)BlackwaveeNON HDL NQADYDVOHOF83 <130 mg/dL (calc)Travolver DaleComment: For patients with diabetes plus 1 major ASCVD risk factor, treating to a non-HDL-C goal of <100 mg/dL (LDL-C of <70 mg/dL) is considered a therapeutic option. Specimen (Source)Anatomical Location / LateralityCollection Method / Volume Collection TimeReceived TimeBloodBLOOD SPECIMEN / Hwghiew8411/30/2024 4:07 PM CDT 11/30/2024 4:08 PM CDT Narrative [facility] - 12/01/2024 5:12 AM CDT FASTING:YES FASTING: YES Authorizing ProviderResult TypeResult StatusTerence Jethro Godwin MDCHEMISTRY Final ResultPerforming OrganizationAddressCity/State/ZIP CodePhone Number [facility] [address] [place] [address], [facility] [address] [place] [address] * ANTI HCV (07/31/2021 1:55 PM FAMILY PROTECTION SPECIALIST)ComponentValueRef RangeTest MethodAnalysis TimePerformed AtPathologist SignatureHEPATITIS C ANTIBODYNon-Reactive Non-Ylhmrcwz18/06/2021 9:46 PM [facility] Comment:Antibodies to HCV not detected; does not exclude the possibility of exposure to HCV.Specimen (Source)Anatomical Location / LateralityCollection Method / VolumeCollection TimeReceived TimeBloodBLOOD SPECIMEN / Unknown Venipuncture / Rmvucnc6407/31/2021 1:55 PM CST07/31/2021 1:58 PM FAMILY PROTECTION SPECIALIST Narrative Authorizing ProviderResult TypeResult StatusTerence Jethro Connelly MDSEND OUTS Final ResultPerforming OrganizationAddressCity/State/ZIP CodePhone Number [facility] [address] [place] [address], from Last 3 Months or Most Recently Relevant to Health Maintenance Insurance * Guarantor: Speck, Mane JAccount TypeRelation to PatientDate of BirthPhone Billing AddressPersonal/KoospjQfwj1955 [address] [facility] [place] [address] Advance Directives * Full Code (Latest Code Status on File) Date ActivatedDate VtpffqbiymhYntnfslz98/3/2025 6:42 AM07/28/2025 11:26 AM QuestionAnswerCommentsCode Status Discussion:* Discussed * Full Code Date ActivatedDate DddzwdjnrslNwfecnfa35/9/2025 8:30 PM10 5:21 PM QuestionAnswerCommentsCode Status Discussion:* Reviewed Preferences * Full Code Date ActivatedDate InactivatedComments03/25/2025 2:43 PM03/26/2025 1:32 PMQuestion AnswerCommentsCode Status Discussion:* Reviewed Preferences * Full Code Date ActivatedDate InactivatedComments02/17/2025 4:41 PM02/22/2025 7:58 PMQuestion AnswerCommentsCode Status Discussion:* Reviewed Preferences * Full Code Date ActivatedDate InactivatedComments02/16/2025 2:08 AM02/17/2025 2:08 PMQuestion AnswerCommentsCode Status Discussion:* Reviewed Preferences Care Teams Team MemberRelationshipSpecialtyStart DateEnd Date Andre Ricci PA [address] [place] [address] [place] [address] PCP - GeneralPhysician Assistant05/10/25 David Barbosa MD [address] [place] [address] [place] [address] Surgery - Uvyzhhf50/10/25 Allie Maier, RN [address] [facility] [place] [employer] [address] [place] [address] Diabetes EducatorRegistered Nurse07/05/25 [place] [address] [place] [address] TyqgwnrkdvwotSqkqjdammllcx75/21/25
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
[2025-08-09 02:55] VITALS: O2SAT 98
[2025-08-09 03:13] LABS: Hematocrit* 41.2 % (37.0-53.0); Hemoglobin* 13.7 gm/dL (13.5-17.5); Immature Granulocytes Abs Auto 0.05 K/uL (0.00-0.30); Immature Granulocytes Pct Auto 1.0 %; Mean Corpuscular HGB Conc 33 gm/dL (32-36); Mean Corpuscular Hemoglobin 29 pg (26-34); Mean Corpuscular Volume 88 fL (80-100); RDW Coefficient of Variation % 14.1 % (11.5-15.5); Red Blood Count* 4.71 m/uL (4.30-5.90); White Blood Count* 4.82 K/uL (4.50-11.00)
[2025-08-09 03:31] LABS: Lymphocytes Absolute Auto 0.80 K/uL (0.90-2.90); Slide Review Reflex No
[2025-08-09 03:32] LABS: D Dimer Quantitative* 0.40 ug/ml (0.00-0.50)
[2025-08-09 03:34] LABS: Chloride* 105 mmol/L (96-114)
[2025-08-09 03:35] LABS: Potassium* 4.0 mmol/L (3.6-5.1); Sodium* 136 mmol/L (135-149)
[2025-08-09 03:37] LABS: Blood Urea Nitrogen* 16 mg/dL (7-30); Creatinine* 0.8 mg/dL (0.5-1.5); Est. Creatinine Clearance* 63.03; Estimated Glomerular Filt Rate 95 ml/min
[2025-08-09 03:38] LABS: Anion Gap 5 mEq/L (7-15); Calcium* 8.8 mg/dL (8.4-10.6); Carbon Dioxide* 26 mmol/L (20-32); Glucose* 184 mg/dL (60-115)
[2025-08-09 03:50] VITALS: BP 154/98; PULSE 65; RESP 16; O2SAT 98
[2025-08-09 03:58] LABS: NT Pro B Type NatriureticPept* 138 pg/mL (See Note)
== END 2025-08-09 05:27 | disposition home or self-care (01) ==
PROVIDERS: Emergency Provider Family Medicine
DX: R07.89 Other chest pain (principal); I49.3 Ventricular premature depolarization; E11.9 Type 2 diabetes mellitus without complications; Z79.4 Long term (current) use of insulin; Z95.2 Presence of prosthetic heart valve; Z79.01 Long term (current) use of anticoagulants
CPT/HCPCS: 36415; 80048; 83880; 84484; 85025; 85379; 93005; 94761; 99284